=== PATIENT | female | born 1960 | race African-American/Black ===

== ENCOUNTER 2017-06-17 11:58 | Day surgery (SDC) | payer OTHER ==
[2017-06-17] MEDS ORDERED: NA CHLORIDE 0.9% 500 ML ONE (12:22)
[2017-06-17] MEDS ORDERED: BUPIVACAINE 0.25% PF 10 ML VIAL ONE (12:24)
[2017-06-17] MEDS ORDERED: TETRACAINE HCL 0.5% 2ML OPTH ONE (12:24)
[2017-06-17] MEDS ORDERED: CYCLOPENTOLATE 1% OPTH 2 ML ONE (12:24)
[2017-06-17] MEDS ORDERED: LIDOCAINE 2% MPF 5 ML VIAL ONE ×2 (12:24→13:34)
[2017-06-17] MEDS ORDERED: PHENYLEPHRINE 10% OPTH 5ML ONE (12:25)
[2017-06-17] MEDS ORDERED: BALANCED SALT IRRIG PLAIN 500 ML BTL IRR ONE (12:26)
[2017-06-17] MEDS ORDERED: NS 0.9% VIAL 10 ML ONE (12:26)
[2017-06-17] MEDS ORDERED: EPINEPHRINE/PF 1 MG/ML AMP ONE ×2 (12:26→14:29)
[2017-06-17] MEDS ORDERED: DUOVISC 1 KIT OPTH ONE (12:27)
[2017-06-17] MEDS ORDERED: MOXIFLOXACIN HCL 10 DROPS/ML **OR USE OPTH ONE (12:28)
[2017-06-17] MEDS ORDERED: TRYPAN BLUE 0.5 ML SYR OPTH ONE (12:28)
[2017-06-17] MEDS ORDERED: CYCLOPENTOLATE 1% OPTH 2 ML OPTH ONE ×2 (12:37→12:42)
[2017-06-17] MEDS ORDERED: PHENYLEPHRINE 10% OPTH 5ML OPTH ONE ×2 (12:37→12:42)
[2017-06-17] MEDS ORDERED: PROPOFOL 200 MG/20 ML VIAL IV ONE (13:34)
--- NOTE | 2017-06-17 14:53 | P.BOP ---
Preoperative diagnosis: Mature cataract OD Postoperative diagnosis: Same Primary procedure: Phacoemulsification with IOL OD, complex with the use of trypan blue Estimated blood loss: None Anesthesia: Local (Subtenon's infusion with anesthesia for cataract surgery) Complications: None Implants: ZCB00 +13.0 Transferred to: Other (Day surgery) Condition: Good
[2017-06-17 15:08] VITALS: BP 140/73; TEMP 97.4; O2SAT 99
--- NOTE | 2017-06-18 02:11 | OP ---
Surgeon: Kate Hendrickson MD Anesthesiologist: 1. Michael Joy C.R.N.A. 2. Ric Russell M.D. Preoperative Diagnosis: Mature cataract, right eye. Operation Performed: Phacoemulsification with intraocular lens implant, right eye, complex with use of trypan blue. Anesthesia: Per cataract surgery. Complications: None. Description Of The Procedure: The patient was prepped with Betadine in day surgery. A drape was placed over the right eye. A lid speculum was placed in the right eye. A conjunctival incision was made in the inferior nasal quadrant with Kailash scissors. A 1:1 mixture of 2% Xylocaine and 0.25% bupivacaine was placed around the globe. Approximately 5 mL were used. A Honan balloon was placed on the eye for approximately 5 minutes. The patient was then transferred to the operative room where they were prepped and draped in the usual sterile fashion for ophthalmic surgery. A lid speculum was placed in the right eye. There was poor red reflex and a decision was made to use trypan blue. Paracentesis sites were made superiorly and inferiorly in the limbal cornea. Trypan blue was placed in the anterior chamber for 30 seconds and then balanced salt solution was used to rinse out the trypan blue from the eye. Viscoat was placed in the eye. The temporal conjunctiva was cut at the limbus with Kailash scissors. A crescent blade was used to create a tunnel incision in the temporal cornea. A keratome was used to enter the anterior chamber. Provisc was placed in the eye. A 360 degree capsulotomy was performed with a cystitome. The lens was hydrated with balanced salt solution and moved freely. The lens was removed in a stop and chop fashion. A 6.10 CDE was required. Irrigation and aspiration were used to remove residual cortex. Provisc was placed in the eye and a ZCB00 +13.0 Diopter lens was placed in the capsular bag without complications. Irrigation and aspiration were used to remove residual Viscoat. The paracentesis sites were hydrated with balanced salt solution. The wound and paracentesis sites were inspected and found to be watertight. Intracameral Vigamox 0.07 cc was injected at the end of the procedure. The eye was irrigated with balanced salt solution. The eye was patched with a soft cotton patch and Marti metal shield and the patient was returned to day surgery in good condition. Comments: During phacoemulsification, the iris became floppy and 1:5000 epinephrine was used in the anterior chamber. Prior to the capsulotomy, a 27- gauge needle was placed into the lens and some of the excess cortex was aspirated. Discharge Instructions: Ms. Tavera is discharged to home in good condition and is to follow up with Dr. Hendrickson in the morning. MARY GRACE/TERELL Voice ID: [id number] Report ID: [id number]
== END 2017-06-17 15:17 | disposition home or self-care (01) ==
LOC: OR 11:58
PROVIDERS: ATTEND Ophthalmology Retina Specialist
PROC: 08RJ3JZ Replacement of Right Lens with Synthetic Substitute, Percutaneous Approach (ICD-10-PCS; principal; 2017-06-17 12:00)
DX: H25.89 Other age-related cataract (principal); H43.811 Vitreous degeneration, right eye; H20.9 Unspecified iridocyclitis; I10 Essential (primary) hypertension; K50.90 Crohn's disease, unspecified, without complications; Z88.3 Allergy status to other anti-infective agents; Z83.3 Family history of diabetes mellitus
CPT/HCPCS: J0171

== ENCOUNTER 2017-08-29 06:23 | Day surgery (SDC) | payer OTHER ==
[2017-08-29 06:40] LABS: Specific Gravity >= 1.030 (1.005-1.030)
[2017-08-29] MEDS ORDERED: SCOPOLAMINE HYDROBROMIDE PATCH TD ONE (06:44)
[2017-08-29] MEDS ORDERED: CEFAZOLIN/SWI 1gm 1 GM/10 ML SYR ONE (06:45)
[2017-08-29] MEDS ORDERED: Ringers Lactate 1,000 ML IV ONE (06:45)
[2017-08-29] MEDS ORDERED: DEXAMETHASONE 10 MG/ML VIAL ONE (06:59)
[2017-08-29] MEDS ORDERED: ROCURONIUM 50 MG/5 ML VIAL IV ONE (06:59)
[2017-08-29] MEDS ORDERED: PROPOFOL 200 MG/20 ML VIAL IV ONE (06:59)
[2017-08-29] MEDS ORDERED: FENTANYL CITR 250 MCG/5 ML ONE (07:00)
[2017-08-29] MEDS ORDERED: ONDANSETRON HCL 40 MG/20 ML VIAL ONE (07:00)
[2017-08-29] MEDS ORDERED: LIDOCAINE 2% MPF 5 ML VIAL ONE (07:00)
[2017-08-29] MEDS ORDERED: MIDAZOLAM HCL 2 MG/2 ML INJ ONE (07:00)
[2017-08-29] MEDS: NA CHLORIDE 0.9% 1,000 ML ONE ×4 (07:45→15:53)
[2017-08-29] MEDS ORDERED: KETOROLAC 30 MG/ML INJ ONE (09:27)
[2017-08-29] MEDS: MEPERIDINE HCL 25 MG/0.5 ML ONE ×2 (10:06→10:11)
[2017-08-29 10:07] VITALS: TEMP 97
[2017-08-29] MEDS ORDERED: HYDROCODONE/APAP 5/325 MG TAB ONE (11:36)
[2017-08-29 14:31] VITALS: O2SAT 100
[2017-08-29 15:42] VITALS: BP 124/70
--- NOTE | 2017-08-29 20:25 | OP ---
Date of Procedure: 08/29/2017 Surgeon: Sarina Ariza MD Bowling Ball Weigher And Packer: Cipriano Bender. Preoperative Diagnoses: Postmenopausal bleeding and pelvic pain. Postoperative Diagnoses: Postmenopausal bleeding and pelvic pain. Procedures Performed: Total laparoscopic hysterectomy, bilateral salpingo-oophorectomy, pelvic washi ngs. Anesthesia: General endotracheal. Ebl: Minimal. Complications: None. Drains: None. Specimens: Uterus, bilateral tubes, ovaries, and pelvic washings. Indications: The patient is a 56-year-old with postmenopausal bleeding. She had undergone an endome trial ablation for heavy bleeding in the past. The endometrial sampling was attempted. There was no t adequate sampling to rule out hyperplasia, atypia, or malignancy. With recurrent postmenopausal bl eeding, she was advised to consider hysterectomy. Description Of Procedure: Consented her. Brought her to the OR. A gram of Ancef was given. The pa tient was taken back to the OR, placed in a supine fashion on the operating table. After general ane sthesia was given, she was placed in a dorsal lithotomy position using Liang stirrups. Pelvic exam p erformed uterus small cervix, small. No adnexal masses were palpable. Abdomen, vulva, vagina, and perineum were prepped and draped in sterile fashion. Alcazar was placed to drain the bladder and attached to cysto tubing for retrograde filling. A medium VCare was attempted to be introduced. There was a small perforation in the anterior wall of the uterus, but this did no t interfere with any of the procedure. This was fixed in place and the area was draped. A 1 cm infraumbilical incision was made with a scalpel using the open laparoscopy technique. Fascia was incised, tagged. Peritoneum was entered bluntly and S retractors placed to introduce the Yoel trocar. Site of entry was checked and was unremarkable. Upper abdominal surfaces including the live r, peritoneal surfaces, omentum were all inspected and unremarkable. Her gallbladder is unremarkable as well. The patient was placed in steep Trendelenburg position. A pelvic survey was performed, an d there was a small fibroid at the fundus, subserosal, but no other abnormalities noted on the pelvic peritoneum or the organs. Both ovaries and tubes were atrophic. The 10 mm suprapubic and 5 mm left lower quadrant ports were placed under direct vision. Looking at the uterine perforation, it was no t bleeding, however, pelvic washings were done to make sure that there was no evidence of any abnorma l cytology. After pelvic survey was completed, both ureters were located and traced from the pelvic brim to the u reteric tunnel. There was no anatomical distortion of these. There was small peritoneal adhesion, l ateral to the uterosacral ligament that pulled up, but this was also taken down with the help of plai n scissors to normalize the anatomy. Then, a hysterectomy was started. A 5 mm LigaSure was taken to take down the tube, utero-ovarian ligament, round ligament. Then, the b road ligament was opened up anteriorly and posteriorly. An anterior flap was raised all the way to t he right to create a bladder flap. Posteriorly it was taken down to the level of the left uterosacra l ligament. The uterosacrals were left intact, attached to the vaginal apex. Then, broad ligament w as taken down to skeletonize the vessels on the left side. Then, the same dissection was performed o n the opposite side as well. The tube was removed utero-ovarian round ligament taken down broad liga ment opened up. However, it was difficult to take down the posterior peritoneum on the right side. This was left intact. Then, went onto the anterior wall to clear the bladder. The anterior vaginal wall was dissected to enter the vesicovaginal space. Once I was in there, the bladder was pushed abe n at least 2 cm inferiorly for cuff opening and closure. Vessels were taken down on the right side and on the left side with the help of the bipolar basket ti p followed by the LigaSure, and the cardinal ligaments were also taken down with the help of the Liga Sure. Circumferential colpotomy was performed on both sides. The circumferential colpotomy was perf ormed with a monopolar hook blade and the specimen was detached and pulled out through the vagina. The vaginal occluder bulb was placed for securing the pneumoperitoneum and the ovaries on both sides were taken down with the help of the LigaSure and retrieved through the suprapubic port. There was b leeding from the right corner of the vaginal cuff and this was picked up with [place] and cauterized with the bipolar LigaSure. There was good hemostasis. Then, the vaginal cuff closure was started. A simple 0 Vicryl suture was placed at the left angle including the uterosacral and tied down. A V- Loc suture was taken and starting at the right angle, the suture was taken down in 5 bites to come ac ross all the way including the posterior rectovaginal, fascia anterior precervical fascia, and the va ginal epithelial edges on both anterior and posterior cuff. After the entire closure was done, there was excellent support, good closure, and hemostasis. Both ureters were checked on both sides. No e vidence of any electrical, mechanical, or thermal injury to them. Thorough irrigation and suction we re performed. Pictures were taken. Trocars were removed under direct vision. No evidence of any bl eeding at any of these sides. Gas was desufflated after the Yoel was pulled out. Fascia was close d with the help of 0 Vicryl in a fiemud-qa-lhmpp fashion and simple 0 Vicryl to bring the subcutaneou s tissues together. Simple 0 Vicryl stitch was placed at the fascia in the suprapubic site. Then, a ll skin incisions closed with the help of interrupted 4-0 Monocryl. Instrument, needle, and sponge c ounts were correct at the end of the case. The patient tolerated the procedure well. She was recove red from anesthesia in the OR and taken to PACU in stable condition. KELLEY/TERELL Voice ID: [id number] Report ID: [id number]
== END 2017-08-29 15:53 | disposition home or self-care (01) ==
LOC: OR 06:23
PROVIDERS: ATTEND Obstetrics & Gynecology
PROC: 0UT24ZZ Resection of Bilateral Ovaries, Percutaneous Endoscopic Approach (ICD-10-PCS; 2017-08-29)
PROC: 0UT74ZZ Resection of Bilateral Fallopian Tubes, Percutaneous Endoscopic Approach (ICD-10-PCS; 2017-08-29)
PROC: 3E1M38X Irrigation of Peritoneal Cavity using Irrigating Substance, Percutaneous Approach, Diagnostic (ICD-10-PCS; 2017-08-29)
PROC: 0UT94ZZ Resection of Uterus, Percutaneous Endoscopic Approach (ICD-10-PCS; principal; 2017-08-29 07:30)
DX: N95.0 Postmenopausal bleeding (principal); I10 Essential (primary) hypertension; K50.90 Crohn's disease, unspecified, without complications; R31.21 Asymptomatic microscopic hematuria; K52.9 Noninfective gastroenteritis and colitis, unspecified; D25.2 Subserosal leiomyoma of uterus
CPT/HCPCS: 81025; 86850; 86900; 86901; 88108; 88305; 88307; J0690; J1100; J2175; J2250; J2405; J7030

== ENCOUNTER 2022-07-30 08:04 | Observation (INO) | payer BC ==
--- OUTSIDE RECORDS SUMMARY | 2022-07-30 08:08 | XMS REPORT | Clinical Summary ---
:1960 Author Organization [facility] MD [facility] Address [address] [place] [address] Care Team Providers Name Role Phone Sarina Ariza MD Unavailable Physician, Outside Primary Care Provider Unavailable Allergies Not on File Medications Not on file Active Problems Not on file Social History Tobacco Use Types Packs/Day Years Used Date Smoking Tobacco: Never Assessed Sex Assigned at Date Recorded Not on file Last Filed Vital Signs Not on file Plan of Treatment Health Maintenance Due Date Last Done Comments COVID-19 Vaccination (#1) 05/29/1959 Results Not on fileafter 07/30/2021 Insurance Payer Benefit Plan / Subscriber ID Effective Dates Phone Addre ss Type Group [facility] [id number] 2018-Presen [address] [facility] [place] [address] [address] (Home) [facility] [phone] [place] [id number] (Work) Darlene Tavera Personal/Family Self 1960 [phone] (Home) [facility] [phone] [id number] (Work) Darlene Tavera Personal/Family Self 1960 [phone] (Home) [facility] [phone] [id number] (Work) Care Teams Account Executive Healthcare Relationship Specialty Start Date End Date Sarina Ariza, PCP - External Referring Obstetrics/Gynecology 09/22/[address] [place] [id number] Physician, Outside PCP - General Oncology 01/08/19 [place] [address]
--- OUTSIDE RECORDS SUMMARY | 2022-07-30 08:08 | XMS REPORT | Continuity of Care Document ---
:1960 Author Organization [facility] t Address [address] [facility] [address] [place] [id number] Care Team Providers Name Role Phone PCP, PATIENT DOES NOT HAVE A Primary Care Physician Unavaila AUTUMN Urias Attending Clinician Unavailable DEVONTE MICHELLE I Attending Clinician Unavailable Yolanda Hyman RN Attending Clinician Unavailable Only, Charly Db Test Attending Clinician Unavailable Unknown, Attending Attending Clinician Unavailable HANK GARZA Attending Clinician Unavailable Payers Payer Name Policy Type Policy Number Effective Date Expiration Date S leena BCBS 2 [id number] 2022 00:00:00 Problems This patient has no known problems. Allergies, Adverse Reactions, Alerts Allergy Allergy Status Severity Reaction(s) Onset Inactive Treating Comm ents Source Name Type Date Date Clinician NO KNOWN Drug Active [facility] ALLERGIE Class [facility] Social History Social Habit Start Date Stop Date Quantity Comments Source Exposure to Not sure [facility] SARS-CoV-2 (event) Medica l Branch Sex Assigned At [birth year] [facility] 00:00:00 00:00:00 MD [facility] Smoking Status Start Date Stop Date Source Unknown if ever smoked [facility] Medications Ordered Filled Start Stop Current Ordering Indication Dosage Frequency Signature Comments Components Source Medication Medication Date Date Medication? Clinician (SIG) Name Name No known 2020-02 No Univers medications 2-19 ity of 09:07: [address] No known 2020-02 No [facility] medications 2-19 ity of 09:07: [address] Procedures This patient has no known procedures. Plan of Care Planned Activity Planned Date Details Comments Source Future Scheduled 2021-08-23 COVID-19 Vaccination [facility] [place] Test 06:25:57 (#1) [code = COVID-19 [facility] Vaccination (#1)] Center Encounters Start End Encounter Admission Attending Care Care Encounter Source Date/Time Date/Time Type Type Clinicians Facility Department ID 2022-07-12 2022-07-[address] [facility] [id number] [place] 00:00:00 00:00:[address] [facility] [address] 2022-04-12 2022-04-12 Outpatient ALICIA MICHELLE [id number] 11:15:00 11:15:00 DEVONTE francois 2021-02-23 2021-02-23 Letter DEVONTE Hyman [id number] Univers 00:00:00 00:00:00 (Out) Yolanda [facility] [id number] it y of [facility] [id number] Roc as [id number] [address] 2021-02-21 2021-02-21 Laboratory Only, Ang Db Test [facility] [id number] Univers 13:00:00 13:15:00 Only Unknown, Attending HEALTH [id number] ity [facility] [id number] Roc as BERTRAM?BLEA [id number] [address] MED[facility] OFF[facility] 2021-02-21 2021-02-21 Outpatient Pattie GARZA [facility] [id number] Univers 13:00:00 13:01:05 HANK peralta [facility] Results This patient has no known results.
[2022-07-30] MEDS ORDERED: ASPIRIN 81 MG CHEWABLE TABLET ONE (08:57)
--- NOTE | 2022-07-30 08:57 | RAD REPORT ---
EXAM DESCRIPTION: RAD - Chest Single View - 07/30/2022 8:46 am CLINICAL HISTORY: CHEST PAIN Chest pain. COMPARISON: Chest Pa And Lat (2 Views) dated 01/24/2022; Chest Pa And Lat (2 Views) dated 07/29/2017; Chest Single View dated 10/13/2015; CHEST PA AND LAT 2 VIEW dated 06/29/2011 FINDINGS: Portable technique limits examination quality. The lungs are grossly clear. The heart is normal in size. No displaced fractures. IMPRESSION: No acute intrathoracic process suspected.
[2022-07-30 09:10] LABS: Absolute Lymphocytes (CBC) 1.2 K/uL (0.7-4.9); Hematocrit 41.4 % (36.0-45.0); Lymphocytes % 17.2 % (15.3-44.8); MCV 90.4 fL (80-100); MPV 7.2 fL (7.6-11.3); RBC Red Blood Cell Count 4.57 M/uL (3.86-4.86)
[2022-07-30 09:32] LABS: ALT/SGPT 38 U/L (13-56); AST/SGOT 22 U/L (15-37); Albumin 3.9 g/dL (3.4-5.0); Alkaline Phosphatase 81 U/L (45-117); BUN Blood Urea Nitrogen 13 mg/dL (7-18); Bicarbonate 27 mEq/L (21-32); Bilirubin Total 0.2 mg/dL (0.2-1.0); Glomerular Filtration Rate 74 ml/min (=/>90); Glucose Level 115 mg/dL (74-106); Magnesium 2.1 mg/dL (1.6-2.4); Potassium 3.7 mEq/L (3.5-5.1); Protein, Total 8.5 g/dL (6.4-8.2); Sodium Level 137 mEq/L (136-145)
[2022-07-30 09:33] LABS: Bilirubin Direct < 0.1 mg/dL (0-0.2); Bilirubin Indirect, Calculated ND mg/dL (0.2-0.8)
[2022-07-30 09:34] LABS: Troponin High Sensitivity 82.1 pg/mL (<58.9)
--- NOTE | 2022-07-30 09:52 | ER ---
Nurse's Notes [facility] Name: Darlene Tavera Age: 61 yrs Sex: Female : 1960 Arrival Date: 07/30/2022 Time: 08:04 Bed 20 Private MD: Nathanael Juares Diagnosis: Chest pain, unspecified;Elevated Troponin Presentation: 07/30 08:12 Chief complaint: Patient states: Substernal chest pressure, radiates to right neck and jl7 arm since 0645. 08:12 Coronavirus screen: At this time, the client does not indicate any symptoms associated jl7 with coronavirus-19. Ebola Screen: No symptoms or risks identified at this time. Initial Sepsis Screen: Does the patient meet any 2 criteria? No. Patient's initial sepsis screen is negative. Does the patient have a suspected source of infection? No. Patient's initial sepsis screen is negative. Risk Assessment: Do you want to hurt yourself or someone else? Patient reports no desire to harm self or others. Onset of symptoms was July 30, 2022 at 06:45. Care prior to arrival: None. 08:12 Method Of Arrival: Ambulatory jl7 08:12 Acuity: MIMI 2 jl7 Triage Assessment: 08:19 General: Appears in no apparent distress. uncomfortable, Behavior is calm, cooperative, jl7 appropriate for age. Pain: Complains of pain in chest Pain radiates to right arm and neck Pain currently is 8 out of 10 on a pain scale. Quality of pain is described as pressure. Neuro: Level of Consciousness is awake, alert, obeys commands, Oriented to person, place, time, situation. Cardiovascular: Patient's skin is warm and dry. Respiratory: Airway is patent Respiratory effort is even, unlabored, Respiratory pattern is regular, symmetrical. Derm: Skin is pink, warm \T\ dry. Historical: - Allergies: 08:19 metronidazole; jl7 - Home Meds: 08:19 lisinopril 40 mg Oral tab 1 tab once daily [Active]; spironolactone 25 mg Oral tab 1 jl7 tab once daily [Active]; - PMHx: 08:19 Colitis; Hypertension; jl7 - Immunization history:: Adult Immunizations unknown. - Social history:: Smoking status: Patient denies any tobacco usage or history of. Screenin:53 [facility] ED Fall Risk Assessment (Adult) History of falling in the last 3 months, ap3 including since admission No falls in past 3 months (0 pts). Abuse screen: Denies threats or abuse. Nutritional screening: No deficits noted. Tuberculosis screening: No symptoms or risk factors identified. Assessment: 08:52 General: Appears in no apparent distress. Behavior is calm, cooperative, appropriate ap3 for age. Pain: Complains of pain in neck and right arm and chest Pain began gradually, this morning. Neuro: Level of Consciousness is awake, alert, obeys commands, Oriented to person, place, time, situation. Cardiovascular: Reports chest pain, Patient's skin is warm and dry. Respiratory: Airway is patent Respiratory effort is even, unlabored, Respiratory pattern is regular, symmetrical. 11:35 General: attempted to call report. was informed the receiving nurse would return my ap3 call. 12:55 General: report given to JF Hdez. ap3 Vital Signs: 08:12 BP 141 / 82; Pulse 83; Resp 17; Temp 97.9; Pulse Ox 100% ; Weight 72.57 kg; Height 5 ss ft. 1 in. ; Pain 8/10; 09:22 Pulse 64; Pulse Ox 100% ; ap3 09:37 BP 123 / 75; ap3 11:14 BP 117 / 72; Pulse 86; Resp 16; Pulse Ox 100% ; ap3 08:12 Body Mass Index 30.23 (72.57 kg, 154.94 cm) ss 08:12 Pain Scale: Adult ss ED Course: 08:08 Patient arrived in ED. mr 08:08 Nathanael Juares MD is Private Physician. mr 08:10 Ron Peng DO is Attending Physician. ms3 08:19 Triage completed. jl7 08:19 Arm band placed on right wrist. jl7 08:26 Shana Henriquez, JF is Primary Nurse. ap3 08:48 XRAY Chest (1 view) In Process Unspecified. EDMS 08:53 Patient has correct armband on for positive identification. Placed in gown. Bed in low ap3 position. Call light in reach. Side rails up X 1. water service supervisor on. Pulse ox on. NIBP on. Door closed. Noise minimized. 09:08 Inserted saline lock: 22 gauge in right antecubital area, using aseptic technique. ss ,using aseptic technique. US guided. Pt tolerated well. Blood collected. 09:51 Dieter Ellis MD is Hospitalizing Provider. ms3 13:11 No provider procedures requiring assistance completed. Patient admitted, IV remains in ap3 place. Administered Medications: 08:51 Drug: Aspirin PO Chewable Tablet 324 mg Route: PO; jl7 11:14 Follow up: Response: No adverse reaction ap3 Medication: 13:11 VIS not applicable for this client. ap3 Outcome: 09:52 Decision to Hospitalize by Provider. ms3 13:11 Admitted to Med/surg ap3 13:11 Condition: good 13:11 Instructed on the need for admit. 13:11 Patient left the ED. ap3 Signatures: Dispatcher [employer] EDMS HessMinerva goncalves Shelby, RN RN Taylor Black RN RN jl7 Shana Henriquez RN RN ap3 Ron Peng DO DO ms3 Corrections: (The following items were deleted from the chart) 09:08 08:12 BP 141 / 82; Pulse 83bpm; Resp 79bpm; Pulse Ox 100%; Temp 97.9F; 72.57 kg; Height ss 5 ft. 1 in.; BMI: 30.2; Pain 8/10, Adult; jl7
--- NOTE | 2022-07-30 09:53 | EDPHYS ---
Physician Documentation [facility] Name: Darlene Tavera Age: 61 yrs Sex: Female : 1960 Arrival Date: 07/30/2022 Time: 08:04 Bed 20 Private MD: Nathanael Juares ED Physician Ron Peng HPI: 07/30 08:19 This 61 yrs old Black Female presents to ER via Unassigned with complaints of Chest ms3 discomfort, Arm Pain. 08:19 61-year-old female with past medical history of hypertension presents for not feeling ms3 well. Patient states her symptoms began at 6:45 AM while at a strength and conditioning class she developed a headache and began feeling sick. Patient states she developed substernal chest pain that radiated to her right neck and right arm. Patient endorses nausea. Patient denies vomiting, fevers, chills. Patient denies alleviating or inciting factors. Patient states she had the symptoms 1 month ago and they self resolved.. Historical: - Allergies: 08:19 metronidazole; jl7 - Home Meds: 08:19 lisinopril 40 mg Oral tab 1 tab once daily [Active]; spironolactone 25 mg Oral tab 1 jl7 tab once daily [Active]; - PMHx: 08:19 Colitis; Hypertension; jl7 - Immunization history:: Adult Immunizations unknown. - Social history:: Smoking status: Patient denies any tobacco usage or history of. ROS: 08:19 Constitutional: Negative for fever, and chills. Respiratory: Negative for shortness of ms3 breath, cough, wheezing, and pleuritic chest pain. 08:19 MS/Extremity: Negative for injury and deformity, Skin: Negative for injury, rash, and discoloration, Neuro: Negative for headache, weakness, numbness, tingling. 08:19 Cardiovascular: Positive for chest pain. 08:19 Abdomen/GI: Positive for nausea, Negative for abdominal pain, vomiting, diarrhea. 08:19 All other systems are negative. Exam: 08:19 Constitutional: This is a well developed, well nourished patient who is awake, alert, ms3 and in no acute distress. Head/Face: Normocephalic, atraumatic. Chest/axilla: Normal chest wall appearance and motion. Nontender with no deformity. Cardiovascular: Regular rate and rhythm with a normal S1 and S2. No gallops, murmurs, or rubs. Normal PMI, no JVD. No pulse deficits. Respiratory: Lungs have equal breath sounds bilaterally, clear to auscultation and percussion. No rales, rhonchi or wheezes noted. No increased work of breathing, no retractions or nasal flaring. Abdomen/GI: Soft, non-tender, with normal bowel sounds. No distension or tympany. No guarding or rebound. No evidence of tenderness throughout. Skin: Warm, dry with normal turgor. Normal color with no rashes, no lesions, and no evidence of cellulitis. MS/ Extremity: Pulses equal, no cyanosis. Neurovascular intact. Full, normal range of motion. 08:26 ECG was reviewed by the Attending Physician. ms3 Vital Signs: 08:12 BP 141 / 82; Pulse 83; Resp 17; Temp 97.9; Pulse Ox 100% ; Weight 72.57 kg; Height 5 ss ft. 1 in. ; Pain 8/10; 09:22 Pulse 64; Pulse Ox 100% ; ap3 09:37 BP 123 / 75; ap3 11:14 BP 117 / 72; Pulse 86; Resp 16; Pulse Ox 100% ; ap3 08:12 Body Mass Index 30.23 (72.57 kg, 154.94 cm) ss 08:12 Pain Scale: Adult ss MDM: 08:19 Patient medically screened. ms3 08:19 Differential diagnosis: ACS vs MSK pain vs Dehydration. ms3 09:52 Data reviewed: vital signs, nurses notes, lab test result(s), EKG, radiologic studies, ms3 and as a result, I will admit patient. Consideration of Admission/Observation Patient was admitted/placed on observation. Management of patient was discussed with the following: Hospitalist: . I considered the following discharge prescriptions or medication management in the emergency department Medications were administered in the Emergency Department. See MAR. Independent interpretation of the following test(s) in the Emergency Department EKG: See my EKG interpretation above quality assurance monitor chassis: rate is 71 beats/min, Rhythm is normal sinus rhythm, regular, with no ectopy, Interpretation: normal rate, normal rhythm. Counseling: I had a detailed discussion with the patient and/or guardian regarding: the historical points, exam findings, and any diagnostic results supporting the discharge/admit diagnosis, lab results, radiology results, the need for further work-up and treatment in the hospital. ED course: Discussed mildly elevated troponin with patient. Patient agrees to stay in observation. Patient's primary care physician Dr. Juares is currently out of the country and admitting to the [facility] hospitalist group. Case discussed with hospitalist group and they accept patient.. 07/30 08:15 Order name: Basic Metabolic Panel; Complete Time: 09:42 ms3 07/30 08:15 Order name: CBC with Diff; Complete Time: 09:42 ms3 07/30 08:15 Order name: LFT's; Complete Time: 09:42 ms3 07/30 08:15 Order name: Magnesium; Complete Time: 09:42 ms3 07/30 08:15 Order name: Troponin HS; Complete Time: 09:42 ms3 07/30 08:15 Order name: XRAY Chest (1 view); Complete Time: 09:00 ms3 07/30 08:15 Order name: EKG; Complete Time: 08:15 ms3 07/30 08:15 Order name: Cardiac monitoring; Complete Time: 08:26 ms3 07/30 08:15 Order name: EKG - Nurse/Tech; Complete Time: 08:26 ms3 07/30 08:15 Order name: IV Saline Lock; Complete Time: 09:07 ms3 07/30 08:15 Order name: Labs collected and sent; Complete Time: 09:07 ms3 07/30 08:15 Order name: O2 Per Protocol; Complete Time: 08:26 ms3 07/30 08:15 Order name: O2 Sat Monitoring; Complete Time: 08:26 ms3 EC:26 Rate is 86 beats/min. Rhythm is regular. QRS [place] is Normal. MT interval is normal. QRS ms3 interval is normal. Clinical impression: Normal ECG. Interpreted by me. Reviewed by me. Administered Medications: 08:51 Drug: Aspirin PO Chewable Tablet 324 mg Route: PO; jl7 11:14 Follow up: Response: No adverse reaction ap3 Disposition Summary: 07/30/22 09:52 Hospitalization Ordered Hospitalization Status: Observation ms3 Provider: Dieter Ellis ms3 Location: Telemetry/MedSurg (observation) ms3 Condition: Stable ms3 Problem: new ms3 Symptoms: are unchanged ms3 Bed/Room Type: Standard ms3 Room Assignment: 229(07/30/22 11:28) bd Diagnosis - Chest pain, unspecified ms3 - Elevated Troponin ms3 Forms: - Medication Reconciliation Form ms3 - SBAR form ms3 Signatures: Dispatcher [employer] Elisa Monroy Jahala, RN RN jl7 Ron Peng DO DO ms3 Shana Henriquez RN ap3 Corrections: (The following items were deleted from the chart) : 09:52 ms3 bd
[2022-07-30] MEDS ORDERED: ACETAMINOPHEN 325 MG TABLET PO PRN (10:35)
[2022-07-30] MEDS ORDERED: HYDROCODONE/APAP 5/325 MG TAB PO PRN (10:35)
--- NOTE | 2022-07-30 10:41 | P.HP ---
Certification for Inpatient Patient admitted to: Observation With expected LOS: <2 Midnights Patient will require the following post-hospital care: None Practitioner: I am a practitioner with admitting privileges, knowledge of patient current condition, hospital course, and medical plan of care. Services: Services provided to patient in accordance with Admission requirements found in Title 42 Section 412.3 of the Code of Federal Regulations Patient History Date of Service: 07/30/22 Reason for admission: Chest pain History of Present Illness: Patient is a 61-year-old male with a past medical history significant for Hypertension, Ulcerative Colitis who presents with complaint of chest pain onset today while she was having her strengthening exercise sessions. She reported that she does the exercises twice a week and has been doing the exercises for the past 6 months without any issues. Patient reported that chest pain is located in the substernal chest area with radiation to the right chest wall, right jaw, right shoulder and right arm. Patient reported associated signs and symptoms of headache, nausea, diaphoresis, shortness of breath, fatigue and generalized weakness. Patient denies any other signs and symptoms. Symptoms are aggravated or relieved by nothing. Patient decided to present to the hospital for medical evaluation. Allergies metronidazole [From Flagyl] Adverse Reaction (Mild, Verified 08/26/17 13:19) Nausea/Vomiting Home Medications: Mesalamine [Lialda] 1.2 gm PO BID 06/29/11 Mercaptopurine 50 mg PO DAILY 03/01/15 Lisinopril [Zestril] 40 mg PO DAILY WITH BREAKFAST 12/12/15 Spironolactone [Aldactone*] 25 mg PO DAILY 12/12/15 - Past Medical/Surgical History Diabetic: No -: HTN -: Ulcerative Colitis Past Surgical History: Reviewed- Non-Contributory - Family History Family History: Reviewed- Non-Contributory - Social History Smoking Status: Never smoker Alcohol use: Yes CD- Drugs: No Caffeine use: Yes Place of Residence: Home Review of Systems General: Sweats, Weakness, Other (Fatigue) Eyes: Unremarkable ENT: Unremarkable Respiratory: Shortness of Breath Cardiovascular: Chest Pain Gastrointestinal: Nausea Genitourinary: Unremarkable Musculoskeletal: Shoulder Pain, Arm Pain, Other (Jaw pain ) Integumentary: Unremarkable Neurological: Weakness Lymphatics: Unremarkable Physical Examination - Physical Exam General: Alert, In no apparent distress, Oriented x3, Cooperative HEENT: Atraumatic, PERRLA, Mucous membr. moist/pink, EOMI, Sclerae nonicteric Neck: Supple, 2+ carotid pulse no bruit, No LAD, Without JVD or thyroid abnormality Respiratory: Clear to auscultation bilaterally, Normal air movement Cardiovascular: Regular rate/rhythm, Normal S1 S2 Capillary refill: <2 Seconds Gastrointestinal: Normal bowel sounds, Soft and benign, Non-distended, No tenderness Musculoskeletal: No clubbing, No swelling, No contractures, No tenderness Integumentary: No rashes, No breakdown, No significant lesion, No tenderness/swelling Neurological: Normal speech, Normal strength at 5/5 x4 extr, Normal tone, Normal affect Lymphatics: No axilla or inguinal lymphadenopathy - Studies Laboratory Data (last 24 hrs) 07/30/22 08:58: WBC 7.10, Hgb 13.4, Hct 41.4, Plt Count 287 07/30/22 08:58: Sodium 137, Potassium 3.7, BUN 13, Creatinine 0.88, Glucose 115 H, Magnesium 2.1, Total Bilirubin 0.2, AST 22, ALT 38, Alkaline Phosphatase 81 Assessment and Plan - Plan -- Chest pain. To rule out ACS. Initial troponin level at 82.1. Will trend serial troponin levels. Cardiology consulted. Echocardiogram pending to assess cardiac structures and functions. Telemetry to monitor for any significant arrhythmia. We await further recommendation from certified dental assistant. --History of ulcerative colitis. Stable. Continue home medication and supportive care. -- Hypertension. Poorly controlled. Continue home medications and hydralazine as needed. --Headache. Tylenol as needed. --Acute pain. We will manage pain with current pain medication regimen. --Class I obesity. Likely secondary to excess calories intake. Patient counseled on weight reduction, diet and excise therapy. --CKD 2. Stable. We will continue to monitor renal functions. --DVT prophylaxis with Lovenox subQ. Discharge Plan: Home Plan to discharge in: 48 Hours - Advance Directives Does patient have a Living Will: No Does patient have a Durable POA for Healthcare: No - Code Status/Comfort Care Code Status Assessed: Yes Physician Review: Patient Assessed, Agree with Above Assessment and Plan Critical Care: No
[2022-07-30] MEDS ORDERED: ONDANSETRON 4 MG/2 ML VIAL IV PRN (11:03)
--- NOTE | 2022-07-30 12:00 | EKG ---
Test Date: 2022-07-30 Test Time: 08:21:57 Apparel Designer: HALI MEASUREMENT RESULTS: Intervals: Rate: 86 NE: 128 QRSD: 78 QT: 368 QTc: 440 [place]: P: 61 NE: 128 QRS: 61 T: 49 INTERPRETIVE STATEMENTS: Normal sinus rhythm Possible Left atrial enlargement Borderline ECG Compared to ECG 12/12/2015 17:07:25 No significant changes Electronically Signed On 07-30-22 12:00:12 CDT by Mark Fernandez
[2022-07-30] MEDS ORDERED: HYDRALAZINE HCL 20 MG/ML VIAL IV PRN (12:31)
[2022-07-30 13:37] VITALS: BMI 30.2
[2022-07-30 14:44] LABS: Thyroid Stimulating Hormone 0.73 uIU/mL (0.358-3.740)
[2022-07-30] MEDS ORDERED: HEPA 1000U/500MLS 2,000 UNIT/1,000 ML BAG IV ONE (15:58)
[2022-07-30] MEDS ORDERED: LIDOCAINE 1% 20 ML MDV ONE (15:58)
[2022-07-30] MEDS ORDERED: NA CHLORIDE 0.9% 500 ML ONE (16:02)
[2022-07-30] MEDS ORDERED: MIDAZOLAM HCL 2 MG/2 ML INJ ONE (16:03)
[2022-07-30] MEDS ORDERED: FENTANYL CITR 100 MCG/2 ML ONE (16:03)
[2022-07-30] MEDS ORDERED: VERAPAMIL HCL 10 MG/4 ML VIAL IV ONE (16:04)
[2022-07-30] MEDS ORDERED: HEPARIN 5000 UNIT/ML 1 ML VIAL ONE (16:04)
[2022-07-30] MEDS ORDERED: TICAGRELOR 90 MG TABLET PO ONE (16:04)
[2022-07-30] MEDS ORDERED: HEPARIN 10,000 UNIT/10 ML VIAL IV ONE ×2 (16:04→17:16)
[2022-07-30] MEDS ORDERED: ATROPINE SULF 1 MG/10 ML SYR IV ONE (16:05)
[2022-07-30] MEDS ORDERED: CLOPIDOGREL 75 MG TABLET ONE (16:16)
[2022-07-30] MEDS ORDERED: ASPIRIN 325 MG TAB ONE (16:16)
[2022-07-30] MEDS ORDERED: NITROGLYCERIN/D5W 25 MG/250 ML BTL IV ONE (16:34)
[2022-07-30 18:03] VITALS: O2SAT 99
[2022-07-30] MEDS ORDERED: ATORVASTATIN 40 MG TAB PO SCH (21:00)
[2022-07-30] MEDS ORDERED: HEPARIN/D5W 25,000 UNIT/500 ML BAG IV SCH (21:16)
--- NOTE | 2022-07-30 21:17 | OP ---
Date of Procedure: 07/30/2022 Surgeon: CURT BETTS Procedures Performed: 1.Selective coronary angiogram. 2.Left heart catheterization. 3.PCI with mid severe large diagonal 1 branch, which is the culprit for the DC. I used 2.5 x 16 mm Synergy drug-eluting stent. Indication: Non-ST elevation myocardial infarction. Access: Right femoral artery 6-Mosotho closed with 6-Mosotho Angio-Seal. Complications: None. Bleeding: Less than 20 mL. Anesthesia: Total sedation time is none. Description Of Procedure: After risks, benefits, alternatives were explained, the patient agreed to procedure and signed informed consent. The patient was brought into the cardiac catheterization labo [facility], prepped and draped in the usual sterile fashion. Then, I accessed right femoral artery using ultrasound guidance, micropuncture kit and fluoroscopy. I placed a 6-Mosotho [place] sheath and too k 6-Mosotho JL4 catheter into the aortic root over a J-wire, engaged left main, took standard views an d exchanged for 6-Mosotho JR4 catheter, engaged the RCA, took standard views and the catheter was push ed over the wire into the LV and measured LVEDP, pullback did not record any gradient. Then gave sys temic heparin to assure ACT level above 250 throughout the procedure and I took a 6-Mosotho XB3.5 guid e into the aortic root over a J-wire, engaged left main, took a Run-Through wire into the LAD and the n through diagonal 1 branch passing the area of stenosis. The area was predilated using 2.5 balloon, expanded very well and then placed a 2.5 x 60 mm Synergy drug-eluting stent across the area of steno sis with excellent expansion. The patient did very well. I then removed the wire and the guide and sheath, placed 6--Mosotho Angio-Seal for closure with good hemostasis. Findings: 1.Left main; long and large with luminal irregularities. 2.LAD; proximal segment appears to be normal. Then, diagonal 1 branch comes off, it is very large v essel. It like an almost did well LAD system. In the mid segment, there was 99% stenosis, very long artery with GLORY 1-2 flows, status post successful PCI reducing the stenosis to 0% and resultant CRISTAL I-3 flow. Then in the mid LAD, there was an 80% stenosis, short segment and then the LAD becomes nor mal. 3.Left circumflex; very small and nondominant, extremely small vessel. 4.RCA; large and dominant with luminal irregularities. 5.LVEDP elevated at 70 mmHg. Conclusion: 1.Critical mid diagonal 1 branch stenosis, which is a culprit for DC, status post successful PCI as above. 2.Severe mid LAD stenosis about 80%. Needs staged PCI, which will be done in about 4 weeks post dis charge. Plan: 1.Aspirin, Plavix, and statin. 2.Staged PCI of mid LAD as an outpatient in 4 weeks. SR/MODL Voice ID: [id number] Report ID: [id number]
[2022-07-31 06:48] LABS: Urine Bacteria None Seen /HPF (<20); Urine Bilirubin NEGATIVE (Negative); Urine Blood 1+ (Negative); Urine Clarity Clear (Clear); Urine Color Light-Yellow (Yellow); Urine Glucose NEGATIVE (Negative); Urine Mucus Slight /HPF (None Seen); Urine Protein NEGATIVE (Negative); Urine Urobilinogen Normal (Normal)
[2022-07-31 06:49] LABS: Potassium 3.7 mEq/L (3.5-5.1)
[2022-07-31 06:51] LABS: Absolute Lymphocytes (CBC) 2.7 K/uL (0.7-4.9); Hematocrit 36.2 % (36.0-45.0); MCV 90.2 fL (80-100); MPV 7.6 fL (7.6-11.3); RBC Red Blood Cell Count 4.02 M/uL (3.86-4.86)
--- NOTE | 2022-07-31 08:59 | P.DS ---
Admission Date: 07/30/22 Discharge Date: 07/31/22 Disposition: ROUTINE DISCHARGE Discharge Condition: FAIR Reason for Admission: Chest pain - Problems (1) Chest pain Current Visit: Yes Status: Acute (2) Coronary artery disease Current Visit: Yes Status: Acute (3) NSTEMI (non-ST elevated myocardial infarction) Current Visit: Yes Status: Acute (4) Essential hypertension Current Visit: Yes Status: Acute Brief History of Present Illness: Patient is a 61-year-old male with a past medical history significant for Hypertension, Ulcerative Colitis who presented with complaint of chest pain during her strengthening exercise sessions. She reported that she does the exercises twice a week and has been doing the exercises for the past 6 months without any issues. Patient reported that chest pain is located in the substernal chest area with radiation to the right chest wall, right jaw, right shoulder and right arm. Patient reported associated signs and symptoms of headache, nausea, diaphoresis, shortness of breath, fatigue and generalized weakness. Patient denies any other signs and symptoms. Symptoms are aggravated or relieved by nothing. Initial troponin elevated to 82. EKG did not meet STEMI criteria. Cardiology was informed and patient hospitalized for further management. Hospital Course: Patient troponin trended up to 8000. She was seen and evaluated by cardiology Dr. Paz who recommended cardiac catheterization. Cardiac catheterization revealed Critical mid diagonal 1 branch stenosis, which is a culprit for MT, status post successful PCI, severe mid LAD stenosis about 80% which needs staged PCI, which will be done in about 4 weeks after discharge. Patient was monitored as inpatient after cardiac catheterization and treated with heparin drip. She remained asymptomatic with stable vitals. She has been placed on aspirin, Brilinta and Lipitor. She is discharged to follow-up with Dr. Paz for arrangement for another cardiac cath within 4 weeks. Vital Signs/Physical Exam: Temp Pulse Resp BP Pulse Ox 97.3 F 72 17 140/71 99 07/31/22 04:00 07/31/22 04:00 07/31/22 04:00 07/31/22 04:00 07/31/22 04:00 General: Alert, In no apparent distress, Oriented x3 HEENT: Mucous membr. moist/pink Neck: JVD not distended Respiratory: Clear to auscultation bilaterally, Normal air movement Cardiovascular: No edema, Regular rate/rhythm, Normal S1 S2, No murmurs Gastrointestinal: Normal bowel sounds, Soft and benign, Non-distended, No tenderness Musculoskeletal: No swelling Integumentary: No rashes, No cyanosis Neurological: Normal strength at 5/5 x4 extr Laboratory Data at Discharge: WBC 7.60 thou/uL (4.3-10.9) 07/31/22 06:01 Hgb 11.8 g/dL (12.0-15.0) L D 07/31/22 06:01 Hct 36.2 % (36.0-45.0) 07/31/22 06:01 Plt Count 232 thou/uL (152-406) 07/31/22 06:01 APTT 93.5 SECONDS (24.3-36.9) H 07/31/22 06:15 Sodium 139 mEq/L (136-145) 07/31/22 06:07 Potassium 3.7 mEq/L (3.5-5.1) 07/31/22 06:07 BUN 9 mg/dL (7-18) 07/31/22 06:07 Creatinine 0.78 mg/dL (0.55-1.02) 07/31/22 06:07 Glucose 115 mg/dL (74-106) H 07/31/22 06:07 Phosphorus 2.0 mg/dL (2.5-4.9) L 07/30/22 14:11 Magnesium 2.0 mg/dL (1.6-2.4) 07/30/22 14:11 Total Bilirubin 0.2 mg/dL (0.2-1.0) 07/30/22 08:58 AST 22 U/L (15-37) 07/30/22 08:58 ALT 38 U/L (13-56) 07/30/22 08:58 Alkaline Phosphatase 81 U/L (45-117) 07/30/22 08:58 Triglycerides 74 mg/dL (<150) 07/30/22 14:11 Cholesterol 231 mg/dL (<200) H 07/30/22 14:11 HDL Cholesterol 84 mg/dL (40-60) H 07/30/22 14:11 Cholesterol/HDL Ratio 2.75 07/30/22 14:11 Home Medications: Mesalamine [Lialda] 1.2 gm PO BID 06/29/11 Lisinopril [Zestril] 40 mg PO DAILY WITH BREAKFAST 12/12/15 Spironolactone [Aldactone*] 25 mg PO DAILY 12/12/15 Aspirin Chewable [Aspirin Chewable*] 81 mg PO DAILY #30 tab.chew 07/31/22 Atorvastatin Calcium [Lipitor] 40 mg PO BEDTIME #30 tab 07/31/22 Clopidogrel Bisulfate [Plavix*] 75 mg PO DAILY #30 tab 07/31/22 Metoprolol Tartrate [Lopressor*] 25 mg PO BID #60 tab 07/31/22 New Medications: Aspirin Chewable [Aspirin Chewable*] 81 mg PO DAILY #30 tab.chew Atorvastatin Calcium [Lipitor] 40 mg PO BEDTIME #30 tab Metoprolol Tartrate [Lopressor*] 25 mg PO BID #60 tab Clopidogrel Bisulfate [Plavix*] 75 mg PO DAILY #30 tab Diet: AHA Activity: Ad jacqueline Followup: Nathanael Juares MD [Primary Care Provider] - (Call to schedule appointment) Charlie Paz MD [ACTIVE - CAN ADMIT] - (Within 2 weeks ) Time spent managing pt's care (in minutes): 33
[2022-07-31] MEDS ORDERED: ENOXAPARIN 40 MG/0.4 ML SQ SCH (09:00)
[2022-07-31] MEDS ORDERED: ASPIRIN 81 MG CHEWABLE TABLET PO SCH (09:00)
[2022-07-31] MEDS ORDERED: CLOPIDOGREL 75 MG TABLET PO SCH (09:00)
[2022-07-31 12:55] VITALS: BP 129/73; TEMP 97.1
--- NOTE | 2022-08-01 08:38 | ECHO ---
HEIGHT: 5 ft 1 in WEIGHT: 159 lb 15.831 oz DATE OF STUDY: 07/31/[address]: José Miguel Salmeron 2-DIMENSIONAL: YES M.MODE: YES DOPPLER: YES COLOR FLOW: YES TDS: NO PORTABLE: YES DEFINITY: NO BUBBLE STUDY: NO DIAGNOSIS: CHEST PAIN CARDIAC HISTORY: CATHERIZATION: NO SURGERY: NO PROSTHETIC VALVE: NO PACEMAKER: NO MEASUREMENTS (cm) DIASTOLIC (NORMALS) SYSTOLIC (NORMALS) IVSd 1.1 (0.6-1.2) LA Diam 2.8 (1.9-4.0) LVEF 59% LVIDd 4.3 (3.5-5.7) LVIDs 3.0 (2.0-3.5) %FS 31% LVPWd 1.2 (0.6-1.2) Ao Diam 2.1 (2.0-3.7) 2 DIMENSIONAL ASSESSMENT: RIGHT ATRIUM: NORMAL LEFT ATRIUM: NORMAL RIGHT VENTRICLE: NORMAL LEFT VENTRICLE: NORMAL TRICUSPID VALVE: NORMAL MITRAL VALVE: NORMAL PULMONIC VALVE: NORMAL AORTIC VALVE: NORMAL PERICARDIAL EFFUSION: NONE AORTIC ROOT: NORMAL LEFT VENTRICULAR WALL MOTION: NORMAL DOPPLER/COLOR FLOW: MILD TRICUSPID REGURGITATION. COMMENTS: 1. MILD TRICUSPID REGURGITATION. 2. NORMAL LEFT VENTRICULAR SIZE AND FUNCTION. 3. NORMAL RIGHT VENTRICULAR SYSTOLIC PRESSURE. TECHNOLOGIST: WAN VICTORIA
--- NOTE | 2022-08-01 13:02 | PN ---
The patient was admitted on 07/30/2022, was taken to the photofinishing laboratory worker by Dr. Paz, underwent heart cath eterization. She was having jaw pain and arm pain and chest pain before the procedure. Today, she i s not having any more symptoms, but catheterization site is adequate. She has had no telemetry. No evidence of congestive heart failure. Prior to this, the patient was not really taking much in way m edicine except for Zestril and Aldactone for blood pressure. She now has significant coronary artery disease. She should be going home on her home medications plus aspirin, statin, and either Plavix o r Brilinta and I will leave that up to Dr. Ellis and Dr. Paz. We will see her in the office soon. KARAN/TERELL Voice ID: [id number] Report ID: [id number]
--- NOTE | 2022-08-01 13:50 | CON ---
Date of Consultation: 07/31/2022 Reason For Consultation: Chest pain. History Of Present Illness: Ms. Tavera is a 61-year-old black woman, who has no previous cardiac hist ory except for hypertension. She was exercising as she usually does. Over the last 2-3 times, she h as exercised. After she gets done, she developed this chest pain and that did not last long today; h owever, it lasted long and went up to her neck and jaw. Does not have any nausea. She did have some diaphoresis. Denied vomit. In the emergency room; her EKG is unremarkable, chest x-ray is normal, but her first troponin is mildly elevated. Second troponin was pending. She is asymptomatic now. T elemetry shows sinus rhythm. Past Medical History: As stated above. Allergies: SHE IS ALLERGIC TO FLAGYL. Medications: At home include Zestril and Aldactone. Review of Systems: Negative. Social History: Negative. Family History: Positive for heart disease. Physical Examination: Vital Signs: Stable, afebrile. HEENT: Negative. Neck: Supple with no bruit. Chest: Clear to auscultation and percussion. Cardiac: Revealed a regular rhythm and rate. No murmurs, gallops, or rubs. Abdomen: Benign. Extremities: Revealed no clubbing, cyanosis, or edema. Diagnostic Data: As stated earlier. Impression And Plan: Symptoms suggestive of unstable angina with chest pain radiating to the arm and jaw with a positive troponin. The patient with high risk factor profile including hypertension and dyslipidemia. She is stable hemodynamically. EKG is normal, rhythm is normal. Case was discussed w ith her and her daughter and Dr. Ellis. We will plan to take her to the labor commissioner today to define her coronary anatomy. The catheterization will be done by Dr. Paz. The patient understands the risk and the benefits of the procedure. She agreed to proceed. KARAN/TERELL Voice ID: [id number] Report ID: [id number]
== END 2022-07-31 12:39 | disposition home or self-care (01) ==
LOC: ER 08:04 → ERHOLD 10:34 → 2ND 12:55
PROVIDERS: ADMIT Hospitalist; ATTEND Internal Medicine
DX: I21.4 Non-ST elevation (NSTEMI) myocardial infarction (principal); I25.10 Atherosclerotic heart disease of native coronary artery without angina pectoris; I12.9 Hypertensive chronic kidney disease with stage 1 through stage 4 chronic kidney disease, or unspecified chronic kidney disease; N18.2 Chronic kidney disease, stage 2 (mild); R51.9 Headache, unspecified; K51.90 Ulcerative colitis, unspecified, without complications; R52 Pain, unspecified; E66.9 Obesity, unspecified; Z68.30 Body mass index [BMI] 30.0-30.9, adult; Z71.3 Dietary counseling and surveillance; Z79.899 Other long term (current) drug therapy; Z88.3 Allergy status to other anti-infective agents
CPT/HCPCS: 93005; 93306; 85025 ×2; 81001; 80048 ×2; 36415 ×2; 83735 ×2; 84100; 80061; 80076; 85347 ×2; 85730 ×4; 84443; 83036; 84484 ×2; 84439; 71045; 92928; 93458; 76937; 99285; C1893; C1760; Q9967; G0269; C1725; J2001; J3010; J7040; G0378; J0461; J1644; J2250

== ENCOUNTER 2022-09-03 06:30 | Observation (INO) | payer BC ==
[2022-08-31 14:27] LABS: Potassium 3.7 mEq/L (3.5-5.1)
[2022-08-31 15:34] LABS: Hematocrit 42.3 % (36.0-45.0); MPV 7.6 fL (7.6-11.3)
[2022-08-31 15:52] LABS: Protime INR 1.02
[2022-09-03] MEDS ORDERED: FENTANYL CITR 100 MCG/2 ML ONE (06:47)
[2022-09-03] MEDS ORDERED: HEPA 1000U/500MLS 2,000 UNIT/1,000 ML BAG IV ONE (06:47)
[2022-09-03] MEDS ORDERED: NITROGLYCERIN 100 MCG/ML SYR (for cath lab use only) IV ONE (06:48)
[2022-09-03] MEDS ORDERED: HEPARIN 5000 UNIT/ML 1 ML VIAL ONE (06:48)
[2022-09-03] MEDS ORDERED: MIDAZOLAM HCL 2 MG/2 ML INJ ONE (06:48)
[2022-09-03] MEDS ORDERED: VERAPAMIL HCL 10 MG/4 ML VIAL IV ONE (06:48)
[2022-09-03] MEDS ORDERED: TICAGRELOR 90 MG TABLET PO ONE (06:48)
[2022-09-03] MEDS ORDERED: HEPARIN 10,000 UNIT/10 ML VIAL IV ONE (06:48)
[2022-09-03] MEDS ORDERED: NITROGLYCERIN/D5W 25 MG/250 ML BTL IV ONE (06:49)
[2022-09-03] MEDS ORDERED: ATROPINE SULF 1 MG/10 ML SYR IV ONE (06:49)
[2022-09-03] MEDS ORDERED: CLOPIDOGREL 75 MG TABLET ONE (06:49)
[2022-09-03] MEDS ORDERED: ASPIRIN 325 MG TAB ONE (06:49)
[2022-09-03] MEDS ORDERED: LIDOCAINE 1% 20 ML MDV ONE (06:50)
[2022-09-03] MEDS ORDERED: NA CHLORIDE 0.9% 500 ML ONE (06:56)
--- NOTE | 2022-09-03 09:56 | OP ---
Date of Procedure: 09/03/2022 Surgeon: CURT BETTS Procedures Performed: 1.Selective coronary angiogram. 2.Left heart catheterization. 3.PCI of severe mid LAD stenosis. I used 2.75 x 12 mm Synergy drug-eluting stent. Indication: Known severe mid LAD stenosis with chest pain. Access: Right radial artery 6-[place] closed with TR band. Complications: None. Bleeding: Less than 20 mL. Anesthesia: Total sedation time was 45 minutes. Description Of Procedure: After risks, benefits, and alternatives were explained, the patient agreed to procedure and signed informed consent. The patient was brought into the cardiac catheterization laboratory, prepped and draped in the usual sterile fashion. Then, I accessed right radial artery us ing pediatric micropuncture kit, placed a 6-[place] Slender sheath, took 5-[place] 4.0 catheter i nto the aortic root, engaged left main, took standard views and gave systemic heparin to assure ACT l evel above 250. Then, I took a 6-[place] XB3.5 into the aortic root over a J-wire, engaged left main and I took short Run-Through wire into the LAD, placed it distally and the lesion was pre-dilated usi ng a 2.5 balloon to high pressure and then placed 2.75 x 12 mm Synergy drug-eluting stent with excell ent angiographic results and then removed the wire, the guide and sheath, and placed TR band with goo d hemostasis. Findings: 1.Left main; large and normal. 2.LAD; mid LAD 80% to 90%, status post successful PCI as above and the diagonal 1 branch stent is wi surinder patent. 3.Left circumflex; small, dominant, luminal regularities. 4.Normal LVEDP at 6 mmHg. Conclusion: Severe mid LAD stenosis, status post successful PCI as above. Plan: Aspirin, Plavix, statin, and follow up in 4 weeks in the office. SR/MODL Voice ID: [id number] Report ID: [id number]
--- NOTE | 2022-09-03 11:51 | EKG ---
Test Date: 2022-08-31 Test Time: 13:44:08 Director Of Instruction: BARBY MEASUREMENT RESULTS: Intervals: Rate: 86 MT: 126 QRSD: 76 QT: 358 QTc: 428 [place]: P: 51 MT: 126 QRS: 73 T: 49 INTERPRETIVE STATEMENTS: Normal sinus rhythm Possible Left atrial enlargement Borderline ECG Compared to ECG 07/30/2022 08:21:57 No significant changes Electronically Signed On 09-03-22 11:46:34 CDT by Charlie Paz
[2022-09-03] MEDS ORDERED: ACETAMINOPHEN 325 MG TABLET ONE (13:01)
--- OUTSIDE RECORDS SUMMARY | 2022-09-03 16:05 | XMS REPORT | Clinical Summary ---
:1960 Author Organization [facility] MD [facility] Address [address] [place] [address] Care Team Providers Name Role Phone Sarina [...] Vaccination (#1) 05/29/1961 Results Not on fileafter 09/03/2021 Insurance Payer Benefit Plan / Subscriber ID Effective Dates Phone Addre ss Type Group [facility] [id number] 2018-Presen [address] [facility] [place] [address] [address] (Home) [facility] [phone] [place] [address] (Work) Darlene Tavera Personal/Family Self 1960 [address] (Home) [facility] [phone] [place] [address] (Work) Darlene Tavera Personal/Family Self 1960 [address] (Home) [facility] [phone] [place] [address] (Work) Care Teams Wound Care Physician Relationship Specialty Start Date End Date Sarina Ariza, PCP - External Referring Obstetrics/Gynecology 09/22/[address] [place] [id number] Physician, Outside PCP - General Oncology 01/08/19 [place] [address]
--- OUTSIDE RECORDS SUMMARY | 2022-09-03 16:06 | XMS REPORT | Continuity of Care Document ---
:1960 Author Organization [facility] t Address [address] [place] [address] Care Team Providers Name Role Phone Physician, Outside Primary Care Physician Unavailable Rubina Stallings LVN Attending Clinician Unavailable Germania MOREAU, Brandy Attending Clinician Unavailable Nyasia Longo MA Attending Clinician Unavailable Andres PEREZ, Nayeli Dacosta Attending Clinician DEVONTE MICHELLE I Attending Clinician Unavailable Yolanda Hyman RN Attending Clinician Unavailable Only, Ang Db Test Attending Clinician Unavailable Unknown, Attending Attending Clinician Unavailable HANK GARZA Attending Clinician Unavailable Payers Payer Name Policy Type Policy Number Effective Date Expiration Date S leena BCBS 2 [id number] 2022 00:00:00 Problems This patient has no known problems. Allergies, Adverse Reactions, Alerts Allergy Allergy Status Severity Reaction(s) Onset Inactive Treating Comm ents Source Name Type Date Date Clinician NO KNOWN Drug Active Univers ALLERGIE Class ity of S [facility] Social History Social Habit Start Date Stop Date Quantity Comments Source Exposure to Not sure University SARS-CoV-2 (event) [facility] History of tobacco Current smoker [facility] Tobacco use and 2022-07-12 2022-07-12 Smokeless [facility] exposure 00:00:00 00:00:00 tobacco non-user Hospital Alcohol intake 2022-07-12 2022-07-12 Ex-drinker [facility] 00:00:00 00:00:00 (finding) Hospital History of Social 2022-07-12 2022-07-[address] function 00:00:00 00:00:00 Hospital Sex Assigned At [birth year] [facility] y of 00:00:00 00:00:00 [facility] Smoking Status Start Date Stop Date Source Unknown if ever [facility] Ex-smoker 2022-07-12 00:00:00 2022-07-12 00:00:00 [facility] Medications Ordered Filled Start Stop Current Ordering Indication Dosage Frequency Signature Comments Components Source Medication Medication Date Date Medication? Clinician (SIG) Name Name lisinopriL Yes 40mg QD Take 1 Metho di (PRINIVIL) 5-08 tablet (40 st 40 mg 00:00: mg total) Hospita tablet 00 by mouth l daily. spironolact Yes 25mg QD Take 1 Meth yris one 5-08 tablet (25 st (ALDACTONE) 00:00: mg total) H ospita 25 MG 00 by mouth l tablet every morning. mesalamine Yes 4.8mg Take 4.8 Me thodi (LIALDA) 4-[address] 1.2 gram EC 00:00: mouth. Hosp b[facility]on tablet 00 Take 2 l tablets twice daily No known 2020-02 No Univers medications 2-19 ity of 09:07: [address] No known 2020-02 No Univers medications 2-19 ity of 09:07: [address] Vital Signs Vital Name Observation Time Observation Value Comments Source Systolic blood 2022-07-12 19:31:00 113 mm[Hg] [facility] pressure Diastolic blood 2022-07-12 19:31:00 73 mm[Hg] [facility] pressure Heart rate 2022-07-12 19:31:00 88 /min [facility] Body height 2022-07-12 19:31:00 154.9 cm [facility] Body weight 2022-07-12 19:31:00 73.029 kg [facility] BMI 2022-07-12 19:31:00 30.42 kg/m2 [facility] Procedures Procedure Date / Time Performing Clinician Source Performed FECAL CALPROTECTIN 2022-07-14 15:46:00 [facility] 2022-07-12 20:16:00 [facility] C-REACTIVE PROTEIN 2022-07-12 20:16:00 [facility] SEDIMENTATION RATE 2022-07-12 20:16:00 [facility] TOTAL IRON BINDING 2022-07-12 20:16:00 [facility] CAPACITY FERRITIN LEVEL 2022-07-12 20:16:00 [facility] spital VITAMIN D 25 HYDROXY 2022-07-12 20:16:00 [facility] Plan of Care Planned Activity Planned Date Details Comments Source Future Scheduled 2022-08-31 Screening for [facility] Test 14:34:21 malignant neoplasm of colon (procedure) [code = 455193640] Future Scheduled 2022-08-31 Screening for [facility] Test 14:34:21 malignant neoplasm of colon (procedure) [code = 480816861] Future Scheduled 2022-08-31 COVID-19 VACCINE (#1) [facility] Test 14:34:21 [code = COVID-19 VACCINE (#1)] Future Scheduled 2022-08-31 Hepatitis C screening [facility] Test 14:34:21 (procedure) [code = 077524332] Future Scheduled 2022-08-31 Screening for [facility] Test 14:34:21 malignant neoplasm of cervix (procedure) [code = 001108748] Future Scheduled 2022-08-31 Screening for [facility] Test 14:34:21 malignant neoplasm of colon (procedure) [code = 878231536] Future Scheduled 2022-08-31 SHINGLES VACCINES (1 Met [facility] Test 14:34:21 of 2) [code = SHINGLES VACCINES (1 of 2)] Future Scheduled 2022-08-31 BREAST CANCER [facility] Test 14:34:21 SCREENING [code = BREAST CANCER SCREENING] Future Scheduled 2022-08-31 Screening for [facility] Test 14:34:21 malignant neoplasm of colon (procedure) [code = 040643128] Future Scheduled 2022-08-31 Screening for [facility] Test 14:34:21 malignant neoplasm of colon (procedure) [code = 643210474] Future Scheduled 2022-08-31 INFLUENZA VACCINE [facility] Test 14:34:21 [code = INFLUENZA VACCINE] Future Scheduled 2021-08-23 COVID-19 Vaccination [facility] Test 06:25:57 (#1) [code = COVID-19 [facility] (#1[facility] Center Future Scheduled 2021-08-23 COVID-19 Vaccination [facility] Test 06:25:57 (#1) [code = COVID-19 [facility] (#1)] Center Encounters Start End Encounter Admission Attending Care Care Encounter Source Date/Time Date/Time Type Type Clinicians Facility Department ID 2022-07-26 2022-07-26 Telephone Haylie, 1.2.840.1 [id number] Methodi 00:00:00 00:00:[address] 3.430.2.7 Hospit a .3.111522 l .8 2022-07-20 2022-07-20 Orders [place], 1.2.840.1 [id number] Methodi 00:00:00 00:00:00 Only Brandy [address]279.1.[address] 3.430.2.7 Hospit a .3.115097 l .8 2022-07-20 2022-07-20 Telephone [place], 1.2.840.1 [id number] Methodi 00:00:00 00:00:[address] 3.430.2.7 Hospit a .3.508410 l .8 2022-07-18 2022-07-18 Telephone Haylie, 1.2.840.1 [id number] Methodi 00:00:00 00:00:[address] 3.430.2.7 Hospit a .3.069726 l .8 2022-07-12 2022-07-12 Office [facility], 1.2.840.1 [id number] Methodi 15:00:00 15:27:55 Visit Nayeli L. 96708.1.[address] 3.430.2.7 Hospit a .3.194577 l .8 2022-07-12 2022-07-12 Outpatient [facility] [id number] [place] 00:00:00 00:00:00 NAYELI Enamorado Method i st 2022-07-12 2022-07-12 Travel 1.2.840.1 1.2.605.132 [id number] Methodi 00:00:00 00:00:[address] 3.430.2.7 0.2.7.3.698 Ho spita .3.337239 084.8 l .8 2022-05-28 2022-05-28 Telephone [place], 1.2.840.1 [id number] Methodi 00:00:00 00:00:[address] 3.430.2.7 Hospit a .3.166535 l .8 2022-04-27 2022-04-27 Telephone [place], 1.2.840.1 [id number] Methodi 00:00:00 00:00:[address] 3.430.2.7 Hospit a .3.989155 l .8 2022-04-16 2022-04-16 Telephone [place], 1.2.840.1 [id number] Methodi 00:00:00 00:00:[address] 3.430.2.7 Hospit a .3.279829 l .8 2022-04-12 2022-04-12 Outpatient KARINA MICHELLE [id number] Karina 11:15:00 11:15:00 DEVONTE francois 2021-02-23 2021-02-23 Letter DEVONTE Hyman 1.2.840.114 [id number] Univers 00:00:00 00:00:00 (Out) Yolanda [facility] 350.1.13.10 [facility] 4.2.7.2.686 Roc as [id number] [address] 2021-02-21 2021-02-21 Laboratory Only, Ang Db Test [facility] 1.2.8 40.114 [id number] Univers 13:00:00 13:15:00 Only Unknown, Attending HEALTH 350.1.13.10 ity [facility] 4.2.7.2.686 Roc as BERTRAM?BLEA [id number] [facility] [address] MEDICAL OFFICE BUILDING 2021-02-21 2021-02-21 Outpatient R KAYLA, [facility] [id number] Univers 13:00:00 13:01:05 HANK ity [facility] Results Test Description Test Time Test Comments Results Result Comments Source Fecal calprotectin 2022-07-21 21:55:00 Test Item Value Reference Range Interpretation Comme nts Fecal calprotectin (test 6 mcg/g Re ference Range: <50 Normal code = 88426-4) 50-120 Borde rline >120 Elevated Calpro tectin in Crohn's disease and ulcerative colitis canbe f tiera to several thousand times above the referencepopula tion (50 mcg/g or less). Level s are usually 50 mcg/gor less in healthy patients and wi th irritable bowelsyndrome. Repeat testing in 4-6 weeks is suggested forborderline v alues. CHRISTINE (test code = CHRISTINE) SPLIT 07/12/2022 FROM [id number] RAC (test code = RAC) Performing Organization Information: Site ID: [id number] Name: [facility], Address: [address] [place] [address] Director: Corina Sumner MD,PhD,KHRIS [facility] [id number] 11:14:00 Test Item Value Reference Range Interpretation Comments Ferritin level (test 69 ng/mL 16-288 code = 2276-4) CHRISTINE (test code = CHRISTINE) FASTING:NOCOLLECTION KIT GIVEN TO PATIENT. PATIENT ADVISED TO RETURN. FASTING: NO RAC (test code = RAC) Performing Organization Information: Site ID: RGA Name: [facility] Address: [address] [place] [phone] Director: Michael Zavaleta [facility]-reactive [id number] 11:14:00 Test Item Value Reference Range Interpretation Comments CRP (test code = 1.3 mg/L <=8.0 1988-5) CHRISTINE (test code = FASTING:NOCOLLECTION KIT CHRISTINE) GIVEN TO PATIENT. PATIENT ADVISED TO RETURN. FASTING: NO RAC (test code = Performing Organization RAC) Information: Site ID: LILYA Name: [facility] Address: [address] [place] [phone] Director: Michael Zavaleta [facility] [id number] 11:14:00 Test Item Value Reference Range Interpretation Comments WBC (test code = 5.5 See_Comment [Automated 6252-2) message] The system which generated this result transmit miladys reference range : 3.8 - 10.8 Thousand/uL. Th e reference range was not used to interpret this result as normal/abnormal . RBC (test code = 4.68 See_Comment [Automated 349-8) message] The system which generated this result transmit miladys reference range : 3.80 - 5.10 Million/uL. The reference range was not used to interpret this result as normal/abnormal . HGB (test code = 13.9 g/dL 11.7-15.5 718-7) HCT (test code = 40.3 % 35.0-45.0 4544-3) MCV (test code = 86.1 fL 80.0-100.0 787-2) MCH (test code = 29.7 pg 27.0-33.0 785-6) MCHC (test code 34.5 g/dL 32.0-36.0 = 786-4) RDW (test code = 13.3 % 11.0-15.0 788-0) Platelet count 275 See_Comment [Automated (test code = message] The 777-3) system which generated this result transmit miladys reference range : 140 - 400 Thousand/uL. Th e reference range was not used to interpret this result as normal/abnormal . MPV (test code = 10.4 fL 7.5-12.5 776-5) CHRISTINE (test code = FASTING:NOCOLLECTION CHRISTINE) KIT GIVEN TO PATIENT. PATIENT ADVISED TO RETURN. FASTING: NO RAC (test code = Performing RAC) Organization Information: Site ID: RGA Name: [facility] Address: [address] [place] [phone] Director: [facility] [id number] 11:14:00 Test Item Value Reference Range Interpretation Comments Sedimentation rate 22 mm/h See_Comment [Automat ed (test code = 4537-7) message ] The system which generated this result transmitted reference range : < OR = 30. The reference range was not used to interpret this result as normal/abnormal . CHRISTINE (test code = FASTING:NOCOLLECTI CHRISTINE) ON KIT GIVEN TO PATIENT. PATIENT ADVISED TO RETURN. FASTING: NO RAC (test code = Performing RAC) Organization Information: Site ID: [facility] Address: [address] [place] [phone] Director: [facility]igh[facility]itamin D 25 hydroxy [id number] 11:14:00 Test Item Value Reference Range Interpretation Comments Vitamin D, 62 ng/mL 30-100 Vitamin D Statu s 25-hydroxy (test 25-OH Vitam in D: code = 1989-3) Deficiency: < 20 ng/mLInsufficie ncy : 20 - 29 ng/mLOptimal: > or = 30 ng/mL For 25-OH Vitamin D testing on patients on D2-supplementat ion and patients fo r whom quantitati on of D2 and D3 fractions is required, the QuestAssureD(TM )25 -OH VIT D, (D2,D3), LC/MS/ MS is recommended: order code 9288 8 (patients >2yrs).See Note 1 Note 1 For additional information, please refer to http://educatio n.Q uestDiagnostics .co m/faq/WYL253 (T his link is being provided for informational/e kilo ational purpose s only.) CHRISTINE (test code = FASTING:NOCOLLECTION CHRISTINE) KIT GIVEN TO PATIENT. PATIENT ADVISED TO RETURN. FASTING: NO RAC (test code = Performing RAC) Organization Information: Site ID: [facility] Name: [facility] Address: [address] [place] [phone] Director: [facility] iron binding [id number] 11:14:00 Test Item Value Reference Range Interpretation Comments Iron level (test 62 See_Comment [Automated code = 2498-4) message] The system which generated this result transmit miladys reference range : 45 - 160 mcg/dL . The reference range was not u sed to interpret th is result as normal/abnormal . Iron binding 360 See_Comment [Automated capacity (test message] The code = 2500-7) system which generated this result transmit miladys reference range : 250 - 450 mcg/d L (calc). The reference range was not used to interpret this result as normal/abnormal . Iron saturation 17 See_Comment [Automated (test code = message] The 2502-3) system which generated this result transmit miladys reference range : 16 - 45 % (calc ). The reference range was not u sed to interpret th is result as normal/abnormal . CHRISTINE (test code = FASTING:NOCOLLECTIO CHRISTINE) N KIT GIVEN TO PATIENT. PATIENT ADVISED TO RETURN. FASTING: NO RAC (test code = Performing RAC) Organization Information: Site ID: RGA Name: [facility] Address: [address] [place] [phone] Director: Michael Juma Diet[facility]El[facility]
--- NOTE | 2022-09-03 19:17 | CON ---
Date of Consultation: 09/03/2022 Reason For Consultation: Arm swelling, post heart cath. History Of Present Illness: A 61-year-old female with history of hypertension, coronary artery disea se, status post PCI of the diagonal 1 branch and today she had a PCI of the mid LAD. She did well; h owever, postprocedure started having swelling in her right arm that was radial access. Pressure was held and the swelling has improved and decided to admit overnight for observation. Past Medical History: Coronary artery disease, hypertension, dyslipidemia, , and ulcerativ e colitis. Medications: Refer to reconciliation sheet for detailed list. Allergies: NO KNOWN DRUG ALLERGIES. Family History: No premature coronary artery disease or cancer. Social History: She does not smoke or drink. Does not use any drugs. Review of Systems: All systems reviewed and they were negative except what mentioned in HPI. Physical Examination: Vital Signs: Reviewed. Head and Neck: Pupils are equal, reactive to light. Intact eye movements. No JVD. No cervical lym phadenopathy. Neck is supple. Thyroid is not enlarged. Lungs: Clear to auscultation bilaterally. No rhonchi, wheezing, or crackles. No accessory muscle u se. Heart: Regular rate and rhythm. No extra sounds. Abdomen: Soft, nontender. Bowel sounds positive. No organomegaly. No masses or hernia. No rigidi ty or rebound. Extremities: No edema, clubbing, or cyanosis. Intact pulses. Skin: No rash. Neurologic: Alert, awake, oriented x3. No acute focal deficits appreciated. Investigation: No labs were done yet today. Assessment And Recommendations: 1.Right forearm swelling, post heart catheterization. Local pressure was applied and I do not see a ctive bleeding and the swelling has improved and we will monitor overnight. If no worsening by tomor row, the patient can be released on aspirin, Plavix, and high-dose statin, to follow up as an outpati ent. 2.Coronary artery disease, status post percutaneous coronary intervention of mid LAD today. Continu e aspirin, Plavix, and statin. 3.Dyslipidemia. Recommend Lipitor 40 mg at bedtime. SR/MODL Voice ID: [id number] Report ID: [id number]
[2022-09-03] MEDS ORDERED: ACETAMINOPHEN 325 MG TABLET PO PRN (19:57)
[2022-09-03] MEDS ORDERED: NITROGLYCERIN 0.4 MG/TAB SL PRN (19:57)
[2022-09-03] MEDS ORDERED: ATORVASTATIN 40 MG TAB PO SCH (21:00)
[2022-09-03 23:02] VITALS: BMI 30.2
[2022-09-04 02:59] LABS: Absolute Lymphocytes (CBC) 1.8 K/uL (0.7-4.9); Lymphocytes % 32.5 % (15.3-44.8); MCV 90.8 fL (80-100); MPV 7.2 fL (7.6-11.3); RBC Red Blood Cell Count 4.07 M/uL (3.86-4.86)
[2022-09-04 03:10] LABS: Potassium 4.1 mEq/L (3.5-5.1)
[2022-09-04] MEDS ORDERED: MESALAMINE 400 MG CAPSULE.DR PO SCH (08:00)
[2022-09-04 08:50] VITALS: BP 109/72; TEMP 97
[2022-09-04] MEDS ORDERED: CLOPIDOGREL 75 MG TABLET PO SCH (09:00)
[2022-09-04] MEDS ORDERED: SPIRONOLACTONE 25 MG TABLET PO SCH (09:00)
[2022-09-04] MEDS ORDERED: ASPIRIN 81 MG CHEWABLE TABLET PO SCH (09:00)
[2022-09-04] MEDS ORDERED: lisinopriL 20 MG TAB PO SCH (09:00)
[2022-09-04 10:56] VITALS: O2SAT 98
--- NOTE | 2022-09-04 15:44 | PN ---
Date of Progress Note: 09/04/2022 The patient feels fine this morning. There was some evidence of ecchymosis at the site of the proced ure in the right wrist, minimal discomfort in the anterior forearm. No extension beyond the elbow. No evidence of any infectious process. The patient will be discharged to follow up with Cardiology i n 1 week. HR/MODL Voice ID: [id number] Report ID: [id number]
== END 2022-09-04 12:30 | disposition home or self-care (01) ==
LOC: CCL 06:30 → 2ND 07:15
PROVIDERS: ADMIT Family Medicine; ATTEND Family Medicine
DX: I25.10 Atherosclerotic heart disease of native coronary artery without angina pectoris (principal); I10 Essential (primary) hypertension; E78.2 Mixed hyperlipidemia; M79.89 Other specified soft tissue disorders; K51.90 Ulcerative colitis, unspecified, without complications; Z95.5 Presence of coronary angioplasty implant and graft; Z87.891 Personal history of nicotine dependence; Z79.82 Long term (current) use of aspirin; Z79.899 Other long term (current) drug therapy; Z82.49 Family history of ischemic heart disease and other diseases of the circulatory system
CPT/HCPCS: 93005; 85025 ×2; 80048 ×2; 36415 ×2; 85610; 85347; 85730; 92928; 93454; 76937; C1893; Q9966; C1725; J1644; J2001; J2250; J3010; J7040; G0379; G0378 ×2; J0461

== ENCOUNTER 2023-03-04 13:05 | Inpatient (IN) | payer BC, SELFPAY ==
--- OUTSIDE RECORDS SUMMARY | 2023-03-04 13:08 | XMS REPORT | Clinical Summary ---
Author Name Unknown Organization 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 Name Role Phone Sarina Ariza MD Unavailable [phone] Physician, Outside Primary Care Provider Unavail able Social History Tobacco Use Types Packs/Day Years Used Date Smoking Tobacco: Never Assessed Sex and Gender Information Value Date Recorded Sex Assigned at Not on file Gender Identity Not on file Sexual Orientation Not on file Plan of Treatment Health Maintenance Due Date Last Done Comments COVID-19 Vaccination (#1) 05/29/1961 Care Teams Trimmer And Borer Machine Operator Relationship Specialty Start Date End Date Sarina Ariza MD [address] [place] [id number] PCP - External Referring Obstetrics/Gynecology 09/22/18 Physician, [place] [address] PCP - General Oncology 01/08/19
[2023-03-04] MEDS ORDERED: ASPIRIN 81 MG CHEWABLE TABLET ONE (13:40)
--- NOTE | 2023-03-04 14:13 | RAD REPORT ---
EXAM DESCRIPTION: RAD - Chest Single View - 03/04/2023 2:08 pm CLINICAL HISTORY: CHEST PAIN Chest pain. COMPARISON: <Comparisons> FINDINGS: Portable technique limits examination quality. The lungs are grossly clear. The heart is normal in size. No displaced fractures.Aortic atheroscleros is. IMPRESSION: No acute intrathoracic process suspected.
[2023-03-04 15:08] LABS: Absolute Lymphocytes (CBC) 2.3 K/uL (0.7-4.9); Hematocrit 40.2 % (36.0-45.0); Lymphocytes % 38.4 % (15.3-44.8); MPV 7.4 fL (7.6-11.3); Platelets 261 thou/uL (152-406); RBC Red Blood Cell Count 4.51 M/uL (3.86-4.86)
[2023-03-04 15:30] LABS: Albumin 3.6 g/dL (3.4-5.0); Bilirubin Direct 0.1 mg/dL (0-0.2); Bilirubin Indirect, Calculated 0.3 mg/dL (0.2-0.8); Bilirubin Total 0.4 mg/dL (0.2-1.0); Potassium 3.6 mEq/L (3.5-5.1); Protein, Total 7.8 g/dL (6.4-8.2)
[2023-03-04 15:40] LABS: Troponin High Sensitivity 257.4 pg/mL (<58.9)
--- NOTE | 2023-03-04 16:01 | ER ---
Nurse's Notes [facility] Name: Darlene Tavera Age: 62 yrs Sex: Female : 1960 Arrival Date: 03/04/2023 Time: 13:05 Bed 6 Private MD: Diagnosis: Subsequent non-ST elevation (NSTEMI) myocardial infarction Presentation: 03/04 13:18 Chief complaint: Patient states: "I just haven't been feeling right over the last aa5 week". pt reports SOB on exertion, feeling tired, and chest discomfort. 13:18 Coronavirus screen: fatigue. Ebola Screen: Patient denies travel to an Ebola-affected [facility] area in the 21 days before illness onset. Initial Sepsis Screen: Does the patient meet any 2 criteria? No. Patient's initial sepsis screen is negative. Does the patient have a suspected source of infection? No. Patient's initial sepsis screen is negative. Risk Assessment: Do you want to hurt yourself or someone else? Patient reports no desire to harm self or others. Onset of symptoms was February 2023. 13:18 Method Of Arrival: Ambulatory [facility] 13:18 Acuity: MIMI 3 aa5 Historical: - Allergies: 13:30 metronidazole; aa5 - PMHx: 13:30 Colitis; Hypertension; Myocardial infarction; aa5 - PSHx: 13:30 heart stents x 2; aa5 - Immunization history:: Adult Immunizations unknown. - Social history:: Smoking status: Patient denies any tobacco usage or history of. Screenin:51 [facility] ED Fall Risk Assessment (Adult) History of falling in the last 3 months, ap3 including since admission No falls in past 3 months (0 pts). Abuse screen: Denies threats or abuse. Nutritional screening: No deficits noted. Tuberculosis screening: No symptoms or risk factors identified. Assessment: 13:52 General: Appears in no apparent distress. Behavior is calm, cooperative, appropriate ap3 for age. Pain: Denies pain. Pain does not radiate. Pain began. Neuro: Level of Consciousness is awake, alert, obeys commands, Oriented to person, place, time, situation. Cardiovascular: Patient's skin is warm and dry. Respiratory: Airway is patent Respiratory effort is even, unlabored, Respiratory pattern is regular, symmetrical. 17:04 Reassessment: Attempt report, no answer. tl4 Vital Signs: 13:18 BP 153 / 95; Pulse 82; Resp 16 S; Temp 97.9(O); Pulse Ox 100% on R/A; Weight 72.57 kg aa5 (R); Height 5 ft. 1 in. (R); 16:09 BP 148 / 90; Pulse 78; Resp 15; Pulse Ox 99% ; ko1 17:12 BP 153 / 95; Pulse 81; Resp 17; Pulse Ox 99% ; Pain 0/10; tl4 13:18 Body Mass Index 30.23 (72.57 kg, 154.94 cm) aa5 17:12 Pain Scale: Adult tl4 ED Course: 13:09 Patient arrived in ED. mg5 13:10 Servando Stone MD is Attending Physician. rt 13:18 Arm band placed on Patient placed in an exam room, on a stretcher. aa5 13:32 Triage completed. aa5 13:51 patient monitor on. Pulse ox on. NIBP on. ap3 13:51 Patient has correct armband on for positive identification. Placed in gown. Bed in low ap3 position. Call light in reach. Side rails up X 1. 13:51 Patient maintains SpO2 saturation greater than 95% on room air. ap3 13:56 Maya Osei, JF is Primary Nurse. ko1 14:10 XRAY Chest (1 view) In Process Unspecified. EDMS 15:03 Initial lab(s) drawn, by me, sent to lab. Inserted saline lock: 20 gauge in right cm10 forearm, using aseptic technique. Blood collected. 16:00 Nathanael Juares MD is Hospitalizing Provider. rt 16:09 Provided Education on: na. Door closed. Noise minimized. Lights dimmed. ko1 16:09 No provider procedures requiring assistance completed. Patient admitted, IV remains in ko1 place. Administered Medications: 13:49 Drug: Aspirin PO Chewable Tablet 243 mg PO once; 81 mg tablets x 3 Route: PO; ap3 17:14 Follow up: Response: No adverse reaction tl4 Medication: 13:51 VIS not applicable for this client. ap3 Outcome: 16:01 Decision to Hospitalize by Provider. rt 17:13 Admitted to Med/surg accompanied by tech, via stretcher, room 213, with chart, Report tl4 called to JF Bertrand 17:13 Condition: stable 17:13 Instructed on the need for admit, 17:21 Patient left the ED. tl4 Signatures: Dispatcher [employer] EDDaysi Fine, RN RN aa5 Shana Henriquez RN RN ap3 Maya Osei RN RN ko1 Servando Stone MD MD rt Martinez, Clarissa, RN RN cm10 Robyn Kirkland 5 Eduard Ferguson tl4
--- NOTE | 2023-03-04 16:01 | EDPHYS ---
Physician Documentation [facility] Name: Darlene Tavera Age: 62 yrs Sex: Female : 1960 Arrival Date: 03/04/2023 Time: 13:05 Bed 6 Private MD: ED Physician Servando Stone HPI: 03/04 13:48 This 62 yrs old Black Female presents to ER via Ambulatory with complaints of Chest rt Pain - Discomfort, Shortness Of Breath. 13:48 Patient presents to the ED with about 3 days of an intermittent chest discomfort or rt shortness of breath. This is worse with exertion. She stated that initially felt like it was indigestion. States that she did have some pain to her left arm. States that the symptoms are gone currently after resting. She did have 2 stents placed last year. Denies other acute complaints, symptoms are moderate in severity, no other aggravating or alleviating factors.. Historical: - Allergies: 13:30 metronidazole; aa5 - PMHx: 13:30 Colitis; Hypertension; Myocardial infarction; aa5 - PSHx: 13:30 heart stents x 2; aa5 - Immunization history:: Adult Immunizations unknown. - Social history:: Smoking status: Patient denies any tobacco usage or history of. ROS: 13:48 Constitutional: Negative for fever, chills, and weight loss, Abdomen/GI: Negative for rt abdominal pain, nausea, vomiting, diarrhea, and constipation, MS/Extremity: Negative for injury and deformity, Skin: Negative for injury, rash, and discoloration, Neuro: Negative for headache, weakness, numbness, tingling, and seizure, Psych: Negative for depression, anxiety, suicide ideation, homicidal ideation, and hallucinations, 13:48 Cardiovascular: Positive for chest pain, Negative for edema, 13:48 Respiratory: Positive for shortness of breath, Negative for cough, Exam: 13:48 Constitutional: This is a well developed, well nourished patient who is awake, alert, rt and in no acute distress. Head/Face: Normocephalic, atraumatic. Chest/axilla: Normal chest wall appearance and motion. Nontender with no deformity. No lesions are appreciated. Cardiovascular: Regular rate and rhythm with a normal S1 and S2. No gallops, murmurs, or rubs. Normal PMI, no JVD. No pulse deficits. Respiratory: Lungs have equal breath sounds bilaterally, clear to auscultation and percussion. No rales, rhonchi or wheezes noted. No increased work of breathing, no retractions or nasal flaring. Abdomen/GI: Soft, non-tender, with normal bowel sounds. No distension or tympany. No guarding or rebound. No evidence of tenderness throughout. Skin: Warm, dry with normal turgor. Normal color with no rashes, no lesions, and no evidence of cellulitis. MS/ Extremity: Pulses equal, no cyanosis. Neurovascular intact. Full, normal range of motion. Neuro: Awake and alert, GCS 15, oriented to person, place, time, and situation. Cranial nerves II-XII grossly intact. Motor strength 5/5 in all extremities. Sensory grossly intact. Cerebellar exam normal. Normal gait. Psych: Awake, alert, with orientation to person, place and time. Behavior, mood, and affect are within normal limits. 13:55 ECG was reviewed by the Attending Physician. rt Vital Signs: 13:18 BP 153 / 95; Pulse 82; Resp 16 S; Temp 97.9(O); Pulse Ox 100% on R/A; Weight 72.57 kg aa5 (R); Height 5 ft. 1 in. (R); 16:09 BP 148 / 90; Pulse 78; Resp 15; Pulse Ox 99% ; ko1 17:12 BP 153 / 95; Pulse 81; Resp 17; Pulse Ox 99% ; Pain 0/10; tl4 13:18 Body Mass Index 30.23 (72.57 kg, 154.94 cm) aa5 17:12 Pain Scale: Adult tl4 MDM: 13:20 Patient medically screened. rt 16:22 Differential diagnosis: Acute coronary syndrome, ACS, pneumonia, pneumothorax. HEART rt Score: History: Highly Suspicious (2), ECG: Non specific repolarization disturbance / LBTB / PM (1), Age: > 45 and < 65 years (1), Risk Factors: > or = 3 Risk factors for atherosclerotic disease (2), Troponin: > or = 3 x Normal Limit (2), Total Score = 8. The patient was given aspirin in the Emergency Department. Data reviewed: vital signs, nurses notes, lab test result(s), EKG, radiologic studies. Consideration of Admission/Observation Patient was admitted/placed on observation. Management of patient was discussed with the following: Lumber Kiln Operator: Discussed with patient's take down inspector, request heparin administration, n.p.o. after midnight and will cath in the morning. Primary Care Provider: Agrees to admit. I considered the following discharge prescriptions or medication management in the emergency department Medications were administered in the Emergency Department. See MAR. Independent interpretation of the following test(s) in the Emergency Department X-Ray: My interpretation is No pneumonia seen on interpretation of x-ray images. Test considered but Not performed: CT: Low suspicion for PE, CT angiogram not indicated. Care significantly affected by the following chronic conditions: CAD. Counseling: I had a detailed discussion with the patient and/or guardian regarding the historical points, exam findings, and any diagnostic results supporting the discharge/admit diagnosis, lab results, radiology results, the need for further work-up and treatment in the hospital. Response to treatment: the patient's symptoms have resolved after treatment. 03/04 13:29 Order name: Basic Metabolic Panel; Complete Time: 15:43 rt 03/04 13:29 Order name: CBC with Diff; Complete Time: 15:37 rt 03/04 13:30 Order name: LFT's; Complete Time: 15:43 rt 03/04 13:30 Order name: Magnesium; Complete Time: 15:43 rt 03/04 13:30 Order name: NT PRO-BNP; Complete Time: 15:43 rt 03/04 13:30 Order name: Troponin HS; Complete Time: 15:43 rt 03/04 16:00 Order name: Ptt, Activated rt 03/04 16:00 Order name: PT-INR rt 03/04 13:30 Order name: XRAY Chest (1 view); Complete Time: 14:25 rt 03/04 13:30 Order name: EKG; Complete Time: 13:30 rt 03/04 16:05 Order name: CONS Physician Consult EDMS 03/04 13:30 Order name: Cardiac monitoring; Complete Time: 13:37 rt 03/04 13:30 Order name: EKG - Nurse/Tech; Complete Time: 13:49 rt 03/04 13:30 Order name: IV Saline Lock; Complete Time: 15:03 rt 03/04 13:30 Order name: Labs collected and sent; Complete Time: 15:03 rt 03/04 13:30 Order name: O2 Per Protocol; Complete Time: 13:37 rt 03/04 13:30 Order name: O2 Sat Monitoring; Complete Time: 13:37 rt EC:55 Rate is 73 beats/min. Rhythm is regular, Normal Sinus Rhythm with No ectopy. QRS [place] rt is Normal. IA interval is normal. QRS interval is normal. QT interval is normal. No Q waves. No ST changes noted. Interpreted by me. Administered Medications: 13:49 Drug: Aspirin PO Chewable Tablet 243 mg PO once; 81 mg tablets x 3 Route: PO; ap3 17:14 Follow up: Response: No adverse reaction tl4 Disposition: 19:43 Critical Care:. rt Disposition Summary: 03/04/23 16:01 Hospitalization Ordered Notes: Hospitalization Status: Inpatient Admission rt Provider: Nathanael Juares rt Location: Telemetry/MedSurg (Inpatient) rt Condition: Fair rt Problem: new rt Symptoms: have improved rt Bed/Room Type: Standard rt Room Assignment: [facility](03/04/23 16:09) Diagnosis - Subsequent non-ST elevation (NSTEMI) myocardial infarction rt Forms: - Medication Reconciliation Form rt - SBAR form rt - Leadership Thank You Letter rt Critical care time excluding procedures: 19:43 Critical care time: Bedside Care: 30 minutes, Consultation: 10 minutes. Total time: 40 rt minutes Signatures: Dispatcher [employer] Elisa Monroy Audri, RN RN aa5 Shana Henriquez RN RN ap3 Maya Osei, RN RN ko1 Servando Stone MD MD rt Eduard Ferguson tl4 Corrections: (The following items were deleted from the chart) 16:09 16:01 rt bd
[2023-03-04] MEDS ORDERED: HEPARIN/D5W 25,000 UNIT/500 ML BAG IV SCH (17:40)
[2023-03-04 17:48] VITALS: BMI 30.9
[2023-03-04 17:48] LABS: Protime INR 1.05
[2023-03-04] MEDS ORDERED: ONDANSETRON 4 MG/2 ML VIAL IV PRN (18:08)
[2023-03-04] MEDS ORDERED: MORPHINE 2 MG/ML SYR IV PRN (18:08)
[2023-03-05 03:38] LABS: Absolute Lymphocytes (CBC) 2.5 K/uL (0.7-4.9); Hematocrit 39.3 % (36.0-45.0); Lymphocytes % 45.7 % (15.3-44.8); MCV 88.8 fL (80-100); MPV 7.4 fL (7.6-11.3); Platelets 235 thou/uL (152-406); RBC Red Blood Cell Count 4.43 M/uL (3.86-4.86)
[2023-03-05 03:58] LABS: Albumin 3.3 g/dL (3.4-5.0); Bilirubin Total 0.5 mg/dL (0.2-1.0); Potassium 3.5 mEq/L (3.5-5.1); Protein, Total 7.4 g/dL (6.4-8.2)
[2023-03-05 07:15] LABS: Specific Gravity 1.023 (1.005-1.030); Urine Bilirubin NEGATIVE (Negative); Urine Blood Negative (Negative); Urine Clarity Clear (Clear); Urine Color Yellow (Yellow); Urine Glucose NEGATIVE (Negative); Urine Protein NEGATIVE (Negative); Urine Urobilinogen Normal (Normal)
[2023-03-05] MEDS ORDERED: NITROGLYCERIN/D5W 25 MG/250 ML BTL IV ONE (07:26)
[2023-03-05] MEDS ORDERED: HEPA 1000U/500MLS 2,000 UNIT/1,000 ML BAG IV ONE (07:26)
[2023-03-05] MEDS ORDERED: LIDOCAINE 1% 20 ML MDV ONE (07:26)
[2023-03-05] MEDS ORDERED: VERAPAMIL HCL 10 MG/4 ML VIAL IV ONE (07:27)
[2023-03-05] MEDS ORDERED: HEPARIN 5000 UNIT/ML 1 ML VIAL ONE (07:27)
[2023-03-05] MEDS ORDERED: MIDAZOLAM HCL 2 MG/2 ML INJ ONE (07:27)
[2023-03-05] MEDS ORDERED: FENTANYL CITR 100 MCG/2 ML ONE (07:27)
[2023-03-05] MEDS ORDERED: HEPARIN 10,000 UNIT/10 ML VIAL IV ONE (07:28)
[2023-03-05] MEDS ORDERED: TICAGRELOR 90 MG TABLET PO ONE ×2 (07:28→08:11)
[2023-03-05] MEDS ORDERED: CLOPIDOGREL 75 MG TABLET ONE (07:28)
[2023-03-05] MEDS ORDERED: ASPIRIN 325 MG TAB ONE (07:29)
[2023-03-05] MEDS ORDERED: NA CHLORIDE 0.9% 500 ML ONE (07:33)
[2023-03-05] MEDS: ASPIRIN 81 MG CHEWABLE TABLET PO SCH (10:36)
--- NOTE | 2023-03-05 16:18 | CON ---
Date of Consultation: 03/05/2023 Reason For Consultation: Chest pain with elevated troponin. History Of Present Illness: This is a 62-year-old female very well known to me. She has history of significant coronary artery disease, status post PCI of the diagonal 1 and LAD. She did well for ronald e time and she was on aspirin and Plavix. She comes in with chest pain, pressure like, radiates to t he shoulder with minimal activity and became at rest along with significant shortness of breath with any activities that she does. Troponin was elevated. She is started on heparin drip and at the time of my evaluation, she was chest pain free. Past Medical History: Coronary artery disease, dyslipidemia, hypertension. Medications: Refer to reconciliation sheet for detailed list. Allergies: NO KNOWN DRUG ALLERGIES. Family History: No premature coronary artery disease or cancer. Social History: She does not smoke or drink. Does not use any drugs. Review of Systems: All systems reviewed and they were negative except as mentioned in the HPI. Physical Examination: Vital Signs: Reviewed. Head and Neck: Pupils are equal, reactive to light. Intact eye movements. No JVD. No cervical lym phadenopathy. Neck is supple. Thyroid is not enlarged. Lungs: Clear to auscultation bilaterally. No rhonchi, wheezing, or crackles. No accessory muscle u se. Heart: Regular rate and rhythm. No extra sounds. Abdomen: Soft, nontender. Bowel sounds positive. No organomegaly. No masses or hernia. No rigidi ty or rebound. Extremities: No edema, clubbing, or cyanosis. Intact pulses. Skin: No rash or nodule. Neurologic: Alert, awake, oriented x3. No acute focal deficits appreciated. Investigations: Labs were reviewed. Assessment And Recommendations: 1.Gcn-QD-rikrenvzs myocardial infarction. She is NPO. Plan for coronary angiogram today and PCI as needed. Continue IV heparin and aspirin. 2.Dyslipidemia. Continue statin. 3.Hypertension, blood pressure is controlled. Continue home medications. SR/MODL Voice ID: [id number] Report ID: [id number]
--- NOTE | 2023-03-05 16:39 | OP ---
Date of Procedure: 03/05/2023 Surgeon: CURT BETTS Procedure Performed: 1.Selective coronary geography. 2.Left heart catheterization. 3.PCI of critical mid LAD stenosis 99%, which is a culprit, used 3.0 x 8 mm Synergy drug-eluting john nt. 4.PCI of severe stenosis of the mid LAD distal to the stent, used 2.75 x 8 mm Synergy drug-eluting s tent. 5.PCI of mid diagonal 1 branch severe stenosis, used 2.5 x 8 mm Synergy drug-eluting stent. Indication: [id number]-bxplrhtnb myocardial infarction. Access: Right femoral artery 6-Ivorian closed with 6-Ivorian Angio-Seal. Complications: None. Bleeding: Less than 20 mL. Sedation: Total sedation time was 1 hour. Description Of Procedure: After risks, benefits, and alternatives were explained, the patient agreed to procedure and signed informed consent. The patient was brought into [facility], prepped and draped in the usual sterile fashion. Then, I accessed right femoral artery using micropuncture kit, ultrasound guidance, fluoroscopy, placed 6-Ivorian Weston sheath and took a 6-Fr ench JL4 catheter into the aortic root over a J-wire, engaged the left main, took standard views and exchanged for 6-Ivorian JR4 catheter, engaged the RCA, took standard views and then gave systemic hepa rin to assure ACT level above 250 and then the patient was loaded with Brilinta and aspirin and they took EBU3.5 guide into the aortic root over a J-wire, engaged the left main and took short Runthrough wire into the LAD, pre-dilated the both lesions before and after the stent that is already present t here and then we placed the 3.0 x 8 mm Synergy drug-eluting stent proximally to overlap with the mid LAD stent and placed 2.75 x 8 mm Synergy drug-eluting stent distally to overlap with the mid LAD sten t and post dilated the whole stent 3.0 and excellent results. We then took a Runthrough wire into th e diagonal branch. We pre-dilated the lesion and then placed 2.5 x 8 mm stent in the mid diagonal 1 branch at the area of stenosis with excellent results. Final angiogram was satisfactory after removi ng the wires and then removed the guide and the sheath and placed a 6-Ivorian Angio-Seal for closure w ith good hemostasis. Findings: 1.Left main; large and normal. 2.LAD proximally with luminal irregularities at the mid segment right before the stent and probably at the edge of stent is 99% stenosed, status post successful PCI as above and then the stent also has diffuse ISR 60% to 70% and distally it was about 80%, status post successful PCI as above. The rest of the LAD appears to be normal and diagonal 1 branch is large and has a stent in the mid segment wi th restenosis that is 90%, status post successful balloon angioplasty and stent placement as above. 3.Left circumflex is very small and with luminal irregularities. 4.RCA; large and dominant, approximately mid diffuse stent 20% and the luminal irregularities. 5.LVEDP is borderline elevated at 40 mmHg. Conclusion: 1.Severe LAD and diagonal 1 branch stenosis, status post successful PCI of both. 2.Moderate coronary artery disease elsewhere. Plan: Brilinta and aspirin and statin. She is likely resistant to Plavix. SR/MODL Voice ID: [id number] Report ID: [id number]
[2023-03-05] MEDS: ATORVASTATIN 40 MG TAB PO SCH (20:07)
[2023-03-05] MEDS: TICAGRELOR 90 MG TABLET PO SCH (20:07)
[2023-03-05] MEDS ORDERED: HYDROCODONE/APAP 7.5/325 MG TAB PO PRN (20:30)
[2023-03-06] MEDS: lisinopriL 10 MG TAB PO SCH ×2 (08:56→20:24)
[2023-03-06] MEDS: TICAGRELOR 90 MG TABLET PO SCH ×2 (08:56→20:24)
[2023-03-06] MEDS: ASPIRIN 81 MG CHEWABLE TABLET PO SCH (08:56)
--- NOTE | 2023-03-06 19:21 | PN ---
Date of Progress Note: 03/06/2023 Subjective: Seen by bedside. Doing clinically very well. No chest pain or shortness of breath. Sy mptoms have resolved. No nausea, vomiting, or diarrhea. All other systems were reviewed, they were negative. Objective: Vital signs: Reviewed. Head and Neck: Pupils are equal, reactive to light. Intact eye movements. No JVD. No cervical lym phadenopathy. Neck is supple. Thyroid is not enlarged. Lungs: Clear to auscultation bilaterally. No rhonchi, wheezing, or crackles. No accessory muscle u se. Heart: Regular rate and rhythm. No extra sounds. Abdomen: Soft, nontender. Bowel sounds positive. No organomegaly. No masses or hernia. No rigidi ty or rebound. Extremities: No edema, clubbing, or cyanosis. Intact pulses. Skin: No rash or nodule. Neurologic: Alert, awake, oriented x3. No acute focal deficits appreciated. Investigations: BUN 11, creatinine 0.78, and hemoglobin is 13.1. Assessment And Recommendations: 1.Uix-CL-cluvcpbco myocardial infarction. Culprit was mid LAD and mid diagonal branch, status post PCI on both. She is doing very well. Likely, she had a severe in-stent restenoses within few months due to Plavix resistance. Plavix was discontinued. My recommendation is to continue Brilinta 90 mg by mouth twice a day and baby aspirin 81 mg daily and I will see her postdischarge in 1 week and we will plan for possible coronary angiogram to be done in [address] to [address] From Cardiology standpoint, patient can be released and she will follow up with me next week. 2.Dyslipidemia. Continue with atorvastatin 40 mg q.h.s. 3.Hypertension. Blood pressure is controlled. SR/MODL Voice ID: [id number] Report ID: [id number]
--- NOTE | 2023-03-06 19:27 | PN ---
Date of Progress Note: 03/06/2023 The patient is a 1 day post cath, seems to be doing fine, stable. Plan is to repeat the cath next 24 to 48 hours. Depending on the results, proceed with treatment. HR/MODL Voice ID: [id number] Report ID: [id number]
[2023-03-06] MEDS: ATORVASTATIN 40 MG TAB PO SCH (20:24)
[2023-03-07 04:03] VITALS: O2SAT 96
[2023-03-07] MEDS: ASPIRIN 81 MG CHEWABLE TABLET PO SCH (09:15)
[2023-03-07] MEDS: lisinopriL 10 MG TAB PO SCH (09:15)
[2023-03-07] MEDS: TICAGRELOR 90 MG TABLET PO SCH (09:15)
[2023-03-07 12:00] VITALS: BP 111/62; TEMP 98.5
--- NOTE | 2023-03-07 12:05 | PN ---
Date of Progress Note: 03/07/2023 Subjective: Seen by bedside. Doing clinically well. No chest pain. No shortness of breath. No na usea, vomiting, or diarrhea. No abdominal pain. Completely asymptomatic. Objective: Vital Signs: Reviewed. Head and Neck: Pupils are equal, reactive to light. Intact eye movements. No JVD. No cervical lym phadenopathy. Neck is supple. Thyroid is not enlarged. Lungs: Clear to auscultation bilaterally. No rhonchi, wheezing, or crackles. No accessory muscle u se. Heart: Regular rate and rhythm. No extra sounds. Abdomen: Soft, nontender. Bowel sounds positive. No organomegaly. No masses or hernia. No rigidi ty or rebound. Extremities: No edema, clubbing, or cyanosis. Intact pulses. Skin: No rash or nodule. Neurologic: Alert, awake, oriented x3. No acute focal deficits appreciated. Investigation: Labs were reviewed. Assessment And Recommendations: 1.Jsq-BX-ilqvqqjyi myocardial infarction. LAD and diagonal 1 in-stent restenoses were the culprit, likely a Plavix resistance, status post PCI on both location. Excellent results. Continue aspirin a nd Brilinta and high-dose statin. The patient can be released from Cardiology standpoint and follow up with me in the office in 1 week. We will plan for a diagnostic coronary angiogram in 1 to 2 month s to make sure that there is no restenoses happening. 2.Dyslipidemia. Continue atorvastatin. SR/MODL Voice ID: [id number] Report ID: [id number]
--- NOTE | 2023-03-07 15:32 | PN ---
Date of Progress Note: 03/07/2023 Patient seems stable. Discussion with the agricultural agent felt that she could be discharged. Being aldo re of possible symptoms suggesting a recurrence, medication has been changed to Brilinta instead of P lavix. To be followed up by both Cardiology and myself in the next 2 weeks. Only other difference m edication carter is lisinopril if her blood pressure gets below 100, which happened after th e last procedure and go to 1 a day and when blood pressure is between 140 and 90, then go back to 2 a day. HR/MODL Voice ID: [id number] Report ID: [id number]
--- NOTE | 2023-03-11 17:22 | EKG ---
Test Date: 2023-03-04 Test Time: 13:46:35 Manager Information: ALP MEASUREMENT RESULTS: Intervals: Rate: 73 MI: 122 QRSD: 78 QT: 358 QTc: 394 [place]: P: 46 MI: 122 QRS: 50 T: 70 INTERPRETIVE STATEMENTS: Normal sinus rhythm with sinus arrhythmia Possible Left atrial enlargement Nonspecific T wave abnormality Abnormal ECG Compared to ECG 08/31/2022 13:44:08 T-wave abnormality now present Electronically Signed On 03-11-23 17:01:00 STEAM AND GAS TURBINES ASSEMBLER by Charlie Paz
== END 2023-03-07 14:22 | disposition home or self-care (01) | DRG 322 ==
LOC: ER 13:05 → ERHOLD 16:05 → 2ND 16:54
PROVIDERS: ADMIT Family Medicine; ATTEND Family Medicine
PROC: 027036Z Dilation of Coronary Artery, One Artery with Three Drug-eluting Intraluminal Devices, Percutaneous Approach (ICD-10-PCS; principal; 2023-03-05)
PROC: 4A023N7 Measurement of Cardiac Sampling and Pressure, Left Heart, Percutaneous Approach (ICD-10-PCS; 2023-03-05)
PROC: B2111ZZ Fluoroscopy of Multiple Coronary Arteries using Low Osmolar Contrast (ICD-10-PCS; 2023-03-05)
DX: I21.4 Non-ST elevation (NSTEMI) myocardial infarction (principal); I10 Essential (primary) hypertension; E78.5 Hyperlipidemia, unspecified; I25.10 Atherosclerotic heart disease of native coronary artery without angina pectoris; I25.2 Old myocardial infarction; Z95.5 Presence of coronary angioplasty implant and graft; Z88.8 Allergy status to other drugs, medicaments and biological substances; Z79.01 Long term (current) use of anticoagulants; Z79.02 Long term (current) use of antithrombotics/antiplatelets; Z79.899 Other long term (current) drug therapy
CPT/HCPCS: 36415; 71045; 76937; 80048; 80053; 80076; 81003; 83735; 83880; 84484; 85025; 85610; 85730; 92928; 92929; 93005; 93458; 99285; C1725; C1760; C1893; G0269; J1644; J2001; J2250; J2405; J3010; J7040

== ENCOUNTER 2023-03-10 14:51 | Inpatient (IN) | payer BC ==
--- OUTSIDE RECORDS SUMMARY | 2023-03-10 14:54 | XMS REPORT | Clinical Summary ---
Author Name Unknown Organization [facility] Address [address] [place] [address] Care Team Providers Care Assistant Real Estate Manager Name Role Phone Sarina Ariza MD Unavailable [phone] Physician, Outside Primary Care Provider Unavail able Social History Tobacco Use Types Packs/Day Years Used Date Smoking Tobacco: Never Assessed Sex and Gender Information Value Date Recorded Sex Assigned at Not on file Gender Identity Not on file Sexual Orientation Not on file Plan of Treatment Health Maintenance Due Date Last Done Comments COVID-19 Vaccination (#1) 05/29/1961 Care Teams Assistant Real Estate Manager Relationship Specialty Start Date End Date Sarina Ariza MD [address] [place] [id number] PCP - External Referring Obstetrics/Gynecology 09/22/18 Physician, [place] [address] PCP - General Oncology 01/08/19
[2023-03-10 15:58] LABS: Absolute Lymphocytes (CBC) 1.7 K/uL (0.7-4.9); Hematocrit 42.2 % (36.0-45.0); Lymphocytes % 27.2 % (15.3-44.8); MCV 88.8 fL (80-100); MPV 7.7 fL (7.6-11.3); Platelets 285 thou/uL (152-406); RBC Red Blood Cell Count 4.75 M/uL (3.86-4.86)
[2023-03-10 15:59] LABS: Protime INR 1.09
[2023-03-10 16:27] LABS: Bilirubin Direct 0.1 mg/dL (0-0.2); Bilirubin Indirect, Calculated 0.3 mg/dL (0.2-0.8); Bilirubin Total 0.4 mg/dL (0.2-1.0); Magnesium 2.1 mg/dL (1.6-2.4); Potassium 3.5 mEq/L (3.5-5.1); Protein, Total 8.8 g/dL (6.4-8.2)
[2023-03-10 16:46] LABS: Troponin High Sensitivity 273.7 pg/mL (<58.9)
--- NOTE | 2023-03-10 16:51 | EDPHYS ---
Physician Documentation [facility] Name: Darlene Tavera Age: 62 yrs Sex: Female : 1960 Arrival Date: 03/10/2023 Time: 14:51 Bed 6 Private MD: ED Physician Jeevan Ellis HPI: 03/10 15:42 This 62 yrs old Black Female presents to ER via Ambulatory with complaints of chest sb4 pain, sob. 15:58 patient states she started experiencing chest pain and shortness of breath day similar sb4 to her prior MIs. she had NSTEMI 6 months ago with placement of 2 stents and started on plavix. 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 called Dr. Paz today regarding her symptoms and he instructed her to come to ED. Historical: - Allergies: 15:17 metronidazole; ko1 - PMHx: 15:17 Colitis; Hypertension; Myocardial infarction; ko1 - PSHx: 15:17 heart stents x 2; ko1 - Immunization history:: Adult Immunizations up to date. - Social history:: Smoking status: Patient denies any tobacco usage or history of. ROS: 15:58 Constitutional: Negative for fever, chills, and weight loss, sb4 15:58 Cardiovascular: Positive for chest pain, 15:58 Respiratory: Positive for shortness of breath, 15:58 All other systems are negative, Exam: 15:58 Constitutional: This is a well developed, well nourished patient who is awake, alert, sb4 and in no acute distress. Head/Face: Normocephalic, atraumatic. Eyes: Extra-ocular motions intact. Periorbital areas with no swelling, redness, or edema. ENT: Mucous membranes moist. Cardiovascular: Regular rate and rhythm with a normal S1 and S2. Respiratory: Lungs have equal breath sounds bilaterally, clear to auscultation and percussion. No rales, rhonchi or wheezes noted. No increased work of breathing, no retractions or nasal flaring. Abdomen/GI: Soft, non-tender, no distension. Skin: Warm, dry with normal turgor. Normal color with no rashes, no lesions, and no evidence of cellulitis. MS/ Extremity: Pulses equal, no cyanosis. Neurovascular intact. Full, normal range of motion. Neuro: Awake and alert, GCS 15, oriented to person, place, time, and situation. Motor strength 5/5 in all extremities. Sensory grossly intact. Vital Signs: 15:15 BP 143 / 88; Pulse 89; Resp 16; Temp 98.8; Pulse Ox 99% ; Weight 74.84 kg; Height 5 ft. ko1 1 in. ; 16:20 BP 120 / 77; Pulse 77; Resp 16 S; Pulse Ox 100% on R/A; aa5 19:31 BP 135 / 84; Pulse 91; Resp 16; Pulse Ox 100% on R/A; jb4 15:15 Body Mass Index 31.18 (74.84 kg, 154.94 cm) ko1 MDM: 15:23 Patient medically screened. sb4 16:02 Differential diagnosis: ACS, angina. sb4 16:49 Data reviewed: vital signs, nurses notes, lab test result(s), EKG, radiologic studies, sb4 and as a result, I will admit patient. Consideration of Admission/Observation Patient was admitted/placed on observation. Management of patient was discussed with the following: Hospitalist: Charli ZAMBRANO. Receiver Dispatcher: Dr. Paz, wants to do cardiac cath tomorrow. Care significantly affected by the following chronic conditions: Hypertension, CAD. Counseling: I had a detailed discussion with the patient and/or guardian regarding the historical points, exam findings, and any diagnostic results supporting the discharge/admit diagnosis, lab results, radiology results, the need for further work-up and treatment in the hospital. 03/10 15:30 Order name: Basic Metabolic Panel; Complete Time: 16:47 sb4 03/10 15:30 Order name: CBC with Diff; Complete Time: 16:05 sb4 03/10 15:30 Order name: LFT's; Complete Time: 16:47 sb4 03/10 15:30 Order name: Magnesium; Complete Time: 16:47 sb4 03/10 15:30 Order name: NT PRO-BNP; Complete Time: 16:47 sb4 03/10 15:30 Order name: PT-INR; Complete Time: 16:05 sb4 03/10 15:30 Order name: Troponin HS; Complete Time: 16:47 sb4 03/10 17:39 Order name: T4 Free EDMS 03/10 17:39 Order name: Thyroid Stimulating Hormone EDMS 03/10 17:39 Order name: Urinalysis w/ reflexes EDMS 03/10 17:39 Order name: CBC with Automated Diff EDMS 03/10 17:39 Order name: CBC with Automated Diff EDMS 03/10 17:39 Order name: CBC with Automated Diff EDMS 03/10 17:39 Order name: CBC with Automated Diff EDMS 03/10 17:39 Order name: Comprehensive Metabolic Panel EDMS 03/10 17:39 Order name: Comprehensive Metabolic Panel EDMS 03/10 17:39 Order name: Comprehensive Metabolic Panel EDMS 03/10 17:39 Order name: Comprehensive Metabolic Panel EDMS 03/10 17:39 Order name: Lipid Profile EDMS 03/10 17:39 Order name: Lipid Profile EDMS 03/10 17:39 Order name: Magnesium EDMS 03/10 17:39 Order name: Magnesium EDMS 03/10 17:39 Order name: Magnesium EDMS 03/10 17:39 Order name: Magnesium EDMS 03/10 17:39 Order name: Phosphorus EDMS 03/10 17:39 Order name: Phosphorus EDMS 03/10 17:39 Order name: Phosphorus EDMS 03/10 17:39 Order name: Phosphorus EDMS 03/10 18:53 Order name: PTT, Activated Partial Thromb EDMS 03/10 18:53 Order name: D-Dimer EDMS 03/10 15:30 Order name: XRAY Chest (1 view); Complete Time: 17:20 sb4 03/10 15:30 Order name: EKG; Complete Time: 15:31 sb4 03/10 17:38 Order name: CONS Physician Consult EDMS 03/10 17:57 Order name: EKG Electrocardiogram EDMS 03/10 17:57 Order name: EKG Electrocardiogram EDMS 03/10 15:30 Order name: Cardiac monitoring; Complete Time: 15:31 sb4 03/10 15:30 Order name: EKG - Nurse/Tech; Complete Time: 15:31 sb4 03/10 15:30 Order name: IV Saline Lock; Complete Time: 15:48 sb4 03/10 15:30 Order name: Labs collected and sent; Complete Time: 15:48 sb4 03/10 15:30 Order name: O2 Per Protocol; Complete Time: 15:31 sb4 03/10 15:30 Order name: O2 Sat Monitoring; Complete Time: 15:31 sb4 EC:58 Rate is 81 beats/min. Rhythm is regular, Normal Sinus Rhythm. OR interval is normal at sb4 116 msec. QRS interval is normal at 80 msec. QT interval is normal. No ST changes noted. Clinical impression: No evidence of ischemia. Interpreted by me. Reviewed by me. Administered Medications: No medications were administered Disposition Summary: 03/10/23 16:50 Hospitalization Ordered Notes: Hospitalization Status: Inpatient Admission sb4 Provider: Adriane Blanca sb4 Location: Telemetry/MedSurg (Inpatient) sb4 Condition: Fair sb4 Problem: new sb4 Symptoms: are unchanged sb4 Bed/Room Type: Standard sb4 Room Assignment: 405(03/10/23 17:32) eb Diagnosis - Subsequent non-ST elevation (NSTEMI) myocardial infarction sb4 Forms: - Medication Reconciliation Form sb4 - SBAR form sb4 - Leadership Thank You Letter sb4 Addendum: 03/13/2023 09:00 Co-signature as Attending Physician, Jeevan Ellis MD I reviewed the patient's care r n provided by the Advanced Practice Provider and agree with the diagnosis and treatment plan. Signatures: Dispatcher [employer] EDJeevan Santos MD MD rn Botello, Elizabeth eb Oliver, Kathy, RN RN Katiana Sanchez PA-C PA-C sb4 Corrections: (The following items were deleted from the chart) 03/10 17:32 16:50 sb4 eb
--- NOTE | 2023-03-10 16:51 | ER ---
Nurse's Notes [facility] Name: Darlene Tavera Age: 62 yrs Sex: Female : 1960 Arrival Date: 03/10/2023 Time: 14:51 Bed 6 Private MD: Diagnosis: Subsequent non-ST elevation (NSTEMI) myocardial infarction Presentation: 03/10 15:15 Chief complaint: Patient states: had heart cath in and had stents placed then ko1 here this past Saturday and got out for the same arteries clogged.. Started on new blood thinner, Brilenta and now is having shortness of breath and some chest tightness. Coronavirus screen: At this time, the client does not indicate any symptoms associated with coronavirus-19. Ebola Screen: No symptoms or risks identified at this time. Initial Sepsis Screen: Does the patient meet any 2 criteria? No. Patient's initial sepsis screen is negative. Does the patient have a suspected source of infection? No. Patient's initial sepsis screen is negative. Risk Assessment: Do you want to hurt yourself or someone else? Patient reports no desire to harm self or others. Onset of symptoms was March 10, 2023. 15:15 Method Of Arrival: Ambulatory ko1 15:15 Acuity: MIMI 3 ko1 Triage Assessment: 15:17 General: Appears in no apparent distress. comfortable, Behavior is calm, cooperative, ko1 appropriate for age. Pain: Denies pain. Historical: - Allergies: 15:17 metronidazole; ko1 - PMHx: 15:17 Colitis; Hypertension; Myocardial infarction; ko1 - PSHx: 15:17 heart stents x 2; ko1 - Immunization history:: Adult Immunizations up to date. - Social history:: Smoking status: Patient denies any tobacco usage or history of. Screenin:30 [facility] ED Fall Risk Assessment (Adult) History of falling in the last 3 months, aa5 including since admission No falls in past 3 months (0 pts) Confusion or Disorientation No (0 pts) Intoxicated or Sedated No (0 pts) Impaired Gait No (0 pts) Mobility Assist Device Used No (0 pt) Altered Elimination No (0 pt) Score/Fall Risk Level 0 - 2 = Low Risk Oriented to surroundings, Maintained a safe environment, Educated pt \T\ family on fall prevention, incl call for assistance when getting out of bed. Abuse screen: Denies threats or abuse. Nutritional screening: No deficits noted. Tuberculosis screening: No symptoms or risk factors identified. Assessment: 15:30 General: Appears comfortable, Behavior is calm, cooperative. Pain: Complains of pain in aa5 chest Pain currently is 0 out of 10 on a pain scale. Quality of pain is described as pressure, Pain began 2-3 days ago. Is intermittent. Neuro: Level of Consciousness is awake, alert, obeys commands, Oriented to person, place, time, situation. Cardiovascular: Heart tones S1 S2 present Rhythm is regular. Respiratory: Reports shortness of breath on exertion since 3 days ago Airway is patent Respiratory effort is even, unlabored, Respiratory pattern is regular, symmetrical. GI: Abdomen is round non-distended, Bowel sounds present X 4 quads. Abd is soft and non tender X 4 quads. Reports indigestion, Patient currently denies vomiting. : No signs and/or symptoms were reported regarding the genitourinary system. EENT: No signs and/or symptoms were reported regarding the EENT system. Derm: Skin is dry, Skin is normal, Skin temperature is warm. Musculoskeletal: Range of motion: intact in all extremities. 16:51 Reassessment: Patient appears in no apparent distress at this time. Patient and/or iw family updated on plan of care and expected duration. Pain level reassessed. Patient is alert, oriented x 3, equal unlabored respirations, skin warm/dry/pink. hospitalist at bedside. 18:03 Reassessment: Patient appears in no apparent distress at this time. attempt to call iw report, no answer. 19:31 Reassessment: Patient appears in no apparent distress at this time. Patient and/or jb4 family updated on plan of care and expected duration. Pain level reassessed. Patient is alert, oriented x 3, equal unlabored respirations, skin warm/dry/pink. Vital Signs: 15:15 BP 143 / 88; Pulse 89; Resp 16; Temp 98.8; Pulse Ox 99% ; Weight 74.84 kg; Height 5 ft. ko1 1 in. ; 16:20 BP 120 / 77; Pulse 77; Resp 16 S; Pulse Ox 100% on R/A; aa5 19:31 BP 135 / 84; Pulse 91; Resp 16; Pulse Ox 100% on R/A; jb4 15:15 Body Mass Index 31.18 (74.84 kg, 154.94 cm) ko1 ED Course: 14:55 Patient arrived in ED. mg5 15:03 Katiana Young PA-C is PHCP. sb4 15:03 Jeevan Ellis MD is Attending Physician. sb4 15:17 Triage completed. ko1 15:17 Arm band placed on right wrist. Patient placed in an exam room, on a stretcher, on ko1 professional shopper, on pulse oximetry, Patient notified of wait time. 15:23 Daysi Agosto, RN is Primary Nurse. aa5 15:30 Patient has correct armband on for positive identification. Placed in gown. Bed in low aa5 position. Call light in reach. Side rails up X2. Client placed on continuous cardiac and pulse oximetry monitoring. NIBP monitoring applied. 15:40 Initial lab(s) drawn, by ED staff, sent to lab. Inserted saline lock: 22 gauge in right aa5 forearm, using aseptic technique. Blood collected. Inserted by SHIRLEY Alexander. 16:38 XRAY Chest (1 view) In Process Unspecified. EDMS 16:50 Adriane Blanca MD is Hospitalizing Provider. sb4 19:36 No provider procedures requiring assistance completed. Patient admitted, IV remains in jb4 place. 19:46 Provided Education on: need for admit. jw7 Administered Medications: No medications were administered Medication: 15:30 VIS not applicable for this client. aa5 Outcome: 16:50 Decision to Hospitalize by Provider. sb4 19:35 Admitted to Tele accompanied by nurse, via wheelchair, room 405, with chart, Report jb4 called to JF Newton 19:35 Condition: stable 19:35 Discharge instructions given to patient, Instructed on the need for admit, Demonstrated understanding of instructions, 19:47 Patient left the ED. jw7 Signatures: Dispatcher [employer] EDWV Bhumika Champion RN RN iw Daysi Agosto, RN RN aa5 Home López RN RN jb4 Cecilia Vasquez RN RN jw7 Maya Osei RN RN ko1 Katiana Young PA-C PA-C sb4 Robyn Kirkland mg5
--- NOTE | 2023-03-10 17:20 | RAD REPORT ---
EXAM DESCRIPTION: RAD - Chest Single View - 03/10/2023 4:36 pm CLINICAL HISTORY: CHEST PAIN COMPARISON: Chest Single View dated 03/04/2023; Chest Single View dated 07/30/2022; Chest Pa And Lat ( 2 Views) dated 01/24/2022; Chest Pa And Lat (2 Views) dated 07/29/2017 FINDINGS: Lines: None. Lungs: No evidence of edema or pneumonia. Pleural: No significant pleural effusions or pneumothorax. Cardiac: The heart size is within normal limits. Mediastinum: Within normal limits. Bones: No acute fractures. Other: None IMPRESSION: No acute cardiopulmonary disease.
[2023-03-10] MEDS ORDERED: ALBUTEROL 2.5 MG/3 ML NEB SOL NEB PRN ×2 (17:34→20:17)
--- NOTE | 2023-03-10 17:41 | P.HP ---
Certification for Inpatient Patient admitted to: Inpatient With expected LOS: <2 Midnights Patient will require the following post-hospital care: None Practitioner: I am a practitioner with admitting privileges, knowledge of patient current condition, hospital course, and medical plan of care. Services: Services provided to patient in accordance with Admission requirements found in Title 42 Section 412.3 of the Code of Federal Regulations <Charli Jorge - Last Filed: 03/10/23 17:48> Patient History Date of Service: 03/10/23 Reason for admission: Chest pain History of Present Illness: Ms. Tavera 62-year-old female patient with a history of hypertension, CAD, presented to emergency room via ambulatory with complaints of chest pain, shortness of breath. Patient report that her pain is like pressure in her chest, and shortness of breath at times. No aggravating or relieving factors. Her chest discomfort rates 5 out of 10. Patient reports that she has been experiencing chest pain and shortness of breath last 2 days.. Patient had NSTEMI 6 months ago and with placement of 2 stents and started on Plavix. 1 week ago she had a subsequent ME with with the same arteries, presumed to have Plavix resistance, and was released tended and started on Brilinta by Dr. Horner her car lot attendant. Patient called the car lot attendant today regarding her symptoms and she was advised to come to the emergency room today for possible cardiac heart catheterization tomorrow. ED course vital signs blood pressure 143/88, pulse 89, respirations 16, temperature 98.8, pulse ox 99%, weight 74.84 kg, height 5.1. Laboratory evaluation, CBC is reassuring, metabolic panel with elevated AST 41, ALT 66. Elevated troponin I273.7. Normal chest x-ray findings. Admitting the patient with a diagnosis of NSTEMI, and hypertension. - Past Medical/Surgical History Has patient received pneumonia vaccine in the past: Yes Diabetic: No -: HTN -: Ulcerative Colitis -: CAD - Social History Smoking Status: Never smoker Alcohol use: Yes CD- Drugs: No Caffeine use: Yes <Charli Jorge - Last Filed: 03/10/23 17:48> Date of Service: 03/11/23 - Family History Father Notes: no known medical condition Mother -: Heart disease, Hypertension <Adriane Blanca - Last Filed: 03/11/23 07:28> Allergies No Known Allergies Allergy (Unverified 08/31/22 13:45) Home Medications: Mesalamine [Lialda] 4.8 gm PO DAILY 06/29/11 Aspirin Chewable [Aspirin Chewable*] 81 mg PO DAILY #30 tab.chew 07/31/22 Atorvastatin Calcium [Lipitor] 40 mg PO BEDTIME #30 tab 07/31/22 lisinopriL [Prinivil] 10 mg PO BID 03/04/23 Ticagrelor [Brilinta*] 90 mg PO DAILY 03/11/23 Review of Systems 10-point ROS is otherwise unremarkable <Charli Jorge - Last Filed: 03/10/23 17:48> Physical Examination - Physical Exam General: Alert, Oriented x3 HEENT: Atraumatic, Normocephalic Neck: Supple, 2+ carotid pulse no bruit Respiratory: Clear to auscultation bilaterally, Normal air movement Cardiovascular: No edema, Normal pulses Capillary refill: <2 Seconds Gastrointestinal: Normal bowel sounds, Soft and benign, Non-distended Musculoskeletal: No clubbing, No contractures Neurological: Normal gait, Normal speech, Normal tone, Normal affect - Studies Laboratory Data (last 24 hrs) 03/10/23 03/10/23 03/10/23 15:45 15:45 15:45 WBC 6.10 Hgb 13.9 Hct 42.2 Plt Count 285 PT 12.0 INR 1.09 Sodium 139 Potassium 3.5 BUN 14 Creatinine 0.98 Glucose 98 Magnesium 2.1 Total Bilirubin 0.4 AST 41 H ALT 66 H Alkaline Phosphatase 116 <Charli Jorge - Last Filed: 03/10/23 17:48> - Studies Laboratory Data (last 24 hrs) 03/10/23 03/10/23 03/10/23 15:45 15:45 15:45 WBC 6.10 Hgb 13.9 Hct 42.2 Plt Count 285 PT 12.0 INR 1.09 Sodium 139 Potassium 3.5 BUN 14 Creatinine 0.98 Glucose 98 Magnesium 2.1 Total Bilirubin 0.4 AST 41 H ALT 66 H Alkaline Phosphatase 116 <Adriane Blanca - Last Filed: 03/11/23 07:28> Assessment and Plan - Problems (Diagnosis) (1) Chest pain Current Visit: No Status: Acute (2) Coronary artery disease Current Visit: No Status: Acute Qualifiers: Coronary Disease-Associated Artery/Lesion type: jena artery [place] vs. transplanted heart: jena heart Associated angina: with unstable angina Qualified Code(s): I25.110 - Atherosclerotic heart disease of jena coronary artery with unstable angina pectoris (3) Essential hypertension Current Visit: No Status: Acute (4) NSTEMI (non-ST elevated myocardial infarction) Current Visit: No Status: Acute (5) Crohn's disease Current Visit: Yes Status: Acute (6) Hyperlipidemia Current Visit: Yes Status: Acute - Plan Chest Pain, NSTEMI CAD Hypertension Chron's disease Hyperlipidemia concern for Acute Coronary Syndrome (Non-ST Segment Elevation Myocardial Infarction) Based on history and physical examination, cannot exclude ischemia as a possible etiology of chest pain.. - Evaluation thus far: - EKG: No obvious ST segment changes, trend - Serial troponin initial troponin 273.7 trend - Ordered transthoracic echocardiogram - Ordered chest x-ray -normal - Ordered d-dimer - Management plan: - Consult Cardiology - recommendations appreciated - S/P aspirin 324 mg PO x 1 in ED - Start daily baby aspirin - Symptom control with PRN acetaminophen, nitroglycerin, morphine - reconcile and resume home medication CODE STATUSfull code Diet n.p.o. DVT prophylaxisLovenox Discharge Plan: Home Plan to discharge in: 48 Hours - Advance Directives Does patient have a Living Will: No Does patient have a Durable POA for Healthcare: No - Code Status/Comfort Care Code Status Assessed: Yes (full code) Code Status: Full Code Physician Review: Patient Assessed, Agree with Above Assessment and Plan Critical Care: No Time Spent Managing Pts Care (In Minutes): 55 (minutes) <Charli Jorge - Last Filed: 03/10/23 17:48> - Plan Pt seen and examined. I agree with note by the TANNERY WORKER. Pt is a 62 yo female with past medical history of Htn, HLD, CAD and Crohn's disease who presents with SOB and chest discomfort. Of note pt was discharged from the hospital last saturday after She had cardiac cath. Pt had NSTEMI 6 months ago and cardiology placed 2 stents and started plavix. Last week pt had NSTEMI due to the same coronary artery and cardiology restented it and started pt on brillinta. At home, pt continued to have chest discomfort, SOB with minimal exertion, heart burn and feeling around her jaw. She called Dr. Pierce who advised her to come to the Er for possible cath tomorrow. Lab studies show WBC 6.1, Hgb 13.9. K 3.5, Cr 0.98, troponin 273, BNP 192. At bedside, pt is in NAD. She is in NAD. ROS is significant for SOB with exertion. A/P: NSTEMI: Troponin 273. Will trend troponin Q6h. Continue therapeutic lovenox subq BID, keep NPO after midnight for Cardiac cath. Htn: lisinopril HLD: atorvastatin Hx of Crohn's disease: Continue home med Hx of CAD: Continue home meds. Will hold brillinta. Continue heparin drip. DVT ppx: lovenox Code: full Dr. Donis will take over her care on 03/11/23 <Adriane Blanca - Last Filed: 03/11/23 07:28>
[2023-03-10] MEDS ORDERED: MORPHINE 4 MG/ML SYR IV PRN ×2 (17:54→20:17)
[2023-03-10] MEDS ORDERED: HEPARIN/D5W 25,000 UNIT/500 ML BAG IV SCH (18:00)
[2023-03-10 18:10] LABS: Thyroid Stimulating Hormone 1.91 uIU/mL (0.358-3.740)
[2023-03-10] MEDS ORDERED: SODIUM CHLORIDE 0.9% 10ML INJ IV PRN (18:16)
[2023-03-10] MEDS ORDERED: MORPHINE 2 MG/ML SYR IV PRN (18:22)
[2023-03-10] MEDS ORDERED: HEPARIN/D5W 25,000 UNIT/500 ML BAG IV ONE (18:41)
[2023-03-10] MEDS ORDERED: HEPARIN 5000 UNIT/ML 1 ML VIAL ONE (18:41)
[2023-03-10] MEDS ORDERED: NITROGLYCERIN 0.4 MG/TAB SL PRN (20:17)
[2023-03-10] MEDS ORDERED: ASPIRIN 325 MG TAB PO ONE (20:17)
[2023-03-10 20:22] VITALS: BMI 30.6
[2023-03-10] MEDS: ENOXAPARIN 80 MG/0.8 ML SQ SCH (21:00)
[2023-03-10] MEDS ORDERED: ATORVASTATIN 40 MG TAB PO SCH (21:00)
[2023-03-10 21:43] LABS: Thyroid Stimulating Hormone 1.84 uIU/mL (0.358-3.740)
[2023-03-10 21:58] LABS: Troponin High Sensitivity 220.9 pg/mL (<58.9)
[2023-03-10] MEDS: lisinopriL 10 MG TAB PO SCH (22:22)
[2023-03-10] MEDS: METOPROLOL TAR 50 MG TAB PO SCH (22:23)
[2023-03-10 23:52] LABS: Specific Gravity 1.014 (1.005-1.030); Urine Bilirubin NEGATIVE (Negative); Urine Blood Negative (Negative); Urine Clarity Clear (Clear); Urine Color Light-Yellow (Yellow); Urine Glucose NEGATIVE (Negative); Urine Protein NEGATIVE (Negative); Urine Urobilinogen Normal (Normal)
[2023-03-11 04:20] LABS: Absolute Lymphocytes (CBC) 2.1 K/uL (0.7-4.9); Hematocrit 38.1 % (36.0-45.0); Lymphocytes % 39.7 % (15.3-44.8); MCV 89.4 fL (80-100); MPV 7.4 fL (7.6-11.3); Platelets 260 thou/uL (152-406); RBC Red Blood Cell Count 4.26 M/uL (3.86-4.86)
[2023-03-11 04:36] LABS: Albumin 3.4 g/dL (3.4-5.0); Bilirubin Total 0.5 mg/dL (0.2-1.0); Magnesium 2.1 mg/dL (1.6-2.4); Phosphorus 3.7 mg/dL (2.5-4.9); Potassium 3.7 mEq/L (3.5-5.1); Protein, Total 7.6 g/dL (6.4-8.2)
[2023-03-11] MEDS ORDERED: Mesalamine [Lialda] 1.2 GM Tablet.Dr PO SCH (09:00)
[2023-03-11] MEDS ORDERED: ASPIRIN 81 MG CHEWABLE TABLET PO SCH (09:00)
[2023-03-11] MEDS ORDERED: ASPIRIN EC 81 MG TAB PO SCH ×2 (09:00)
[2023-03-11] MEDS: ENOXAPARIN 80 MG/0.8 ML SQ SCH (09:00)
[2023-03-11] MEDS: METOPROLOL TAR 50 MG TAB PO SCH (09:00)
[2023-03-11] MEDS: lisinopriL 10 MG TAB PO SCH (09:00)
[2023-03-11] MEDS ORDERED: PANTOPRAZOLE 40 MG INJ IVP SCH (09:00)
[2023-03-11] MEDS ORDERED: HEPA 1000U/500MLS 2,000 UNIT/1,000 ML BAG IV ONE (10:33)
[2023-03-11] MEDS ORDERED: FENTANYL CITR 100 MCG/2 ML ONE (10:34)
[2023-03-11] MEDS ORDERED: ATROPINE SULF 1 MG/10 ML SYR IV ONE (10:34)
[2023-03-11] MEDS ORDERED: MIDAZOLAM HCL 2 MG/2 ML INJ ONE (10:34)
[2023-03-11] MEDS ORDERED: LIDOCAINE 1% 20 ML MDV ONE (10:34)
[2023-03-11] MEDS ORDERED: NA CHLORIDE 0.9% 500 ML ONE (10:35)
[2023-03-11] MEDS ORDERED: TICAGRELOR 90 MG TABLET PO ONE (10:35)
[2023-03-11] MEDS ORDERED: CLOPIDOGREL 75 MG TABLET ONE (10:35)
[2023-03-11] MEDS ORDERED: HEPARIN 10,000 UNIT/10 ML VIAL IV ONE (10:36)
[2023-03-11] MEDS ORDERED: ASPIRIN 325 MG TAB ONE (10:36)
--- NOTE | 2023-03-11 12:51 | CON ---
Date of Consultation: 03/11/2023 Reason For Consultation: Chest pain and known coronary artery disease. History Of Present Illness: This is a 62-year-old female, known to have history of coronary artery d isease, status post recent PCI of the mid LAD and diagonal branch. She apparently had presented with non-STEMI about 6 months ago and she had a stent to the LAD and the diagonal branch and she was sent home on Plavix and aspirin and about a week ago, she was having significant shortness of breath on e xertion along with chest tightness and indigestion symptoms and found to have a 99% in-stent restenos es in both stents. This was re-stented to both locations and she was started on Brilinta and sent ho nd. She started having indigestion symptoms again, chest discomfort with dyspnea on exertion. Julia rust is across the chest close to the shoulder, so she presented to the emergency room. At the pres ent time, she feels well. No shortness of breath or chest pain. Past Medical History: Coronary artery disease, hypertension, dyslipidemia. Medications: Refer to reconciliation sheet for detailed list. Allergies: NO KNOWN DRUG ALLERGIES. Family History: No premature coronary artery disease or cancer. Social History: She does not smoke or drink. Does not use any drugs. Review of Systems: All systems reviewed and they were negative except as mentioned in the HPI. Physical Examination: Vital Signs: Reviewed. Head and Neck: Pupils are equal, reactive to light. Intact eye movements. No JVD. No cervical lym phadenopathy. Neck is supple. Thyroid is not enlarged. Lungs: Clear to auscultation bilaterally. No rhonchi, wheezing, or crackles. No accessory muscle u se. Heart: Regular rate and rhythm. No extra sounds. Abdomen: Soft, nontender. Bowel sounds positive. No organomegaly. No masses or hernia. No rigidi ty or rebound. Extremities: No edema, clubbing, or cyanosis. Intact pulses. Skin: No rash or nodule. Neurologic: Alert, awake, oriented x3. No acute focal deficits appreciated. Investigations: Labs were reviewed. Assessment And Recommendations: 1.Chest pain, and patient had in-stent restenoses recently after 6 months. Plan at the L AD and diagonal 1 branch. Symptoms are concerning. Keep her NPO and we will plan for coronary angio gram. If there are restenoses happening in the stents, then we will plan for a coronary artery bypas s surgery, but if the stents are patent, we will continue Brilinta and aspirin. 2.Dyslipidemia. Continue Lipitor 40 mg q.h.s. 3.Hypertension. Blood pressure is controlled. Continue current therapy. SR/TERELL Voice ID: [id number] Report ID: [id number]
[2023-03-11 12:58] VITALS: BP 115/63; TEMP 97.8; O2SAT 100
--- NOTE | 2023-03-11 13:21 | OP ---
Date of Procedure: 03/11/2023 Surgeon: CURT BETTS Procedures Performed: 1.Selective coronary angiogram. 2.Left heart catheterization. Indication: [id number] myocardial infarction/unstable angina. Access: Left femoral artery 6-Croatian closed with StarClose. Complications: None. Bleeding: Less than 20 mL. Anesthesia: Total sedation time was 30 minutes. Description Of Procedure: After risks, benefits, and alternatives explained, the patient agreed to p rocedure and signed informed consent. The patient was brought into cardiac catheterization laborator y, prepped and draped in the usual sterile fashion. Then, we accessed left femoral artery using micr opuncture kit, ultrasound guidance, and fluoroscopy with 6-Croatian [place] sheath and took 6-Croatian J L4 catheter into the aortic root over a J-wire, engaged left main, took standard views and exchanged for 6-Croatian JR4 catheter, engaged the RCA, took standard views. The JR4 catheter was pushed over th e wire into the LV, measured the LVEDP. Pullback did not record any gradient. Then, I removed the c atheter and the sheath. StarClose was used for closure with good hemostasis. Findings: 1.Left main; large and normal. 2.LAD; proximal segment is normal. Mid LAD stent is widely patent. No disease. Rest of the LAD is normal. Diagonal 1 branch; proximal stent is widely patent. No stenosis. 3.Left circumflex; small, nondominant. 4.RCA; it is a dominant circulation with luminal regularities. 5.Elevated LVEDP at 60 mmHg. Conclusion: 1.Widely patent LAD and diagonal 1 stents and no significant coronary artery disease elsewhere. 2.Elevated LVEDP. Recommendation: Continue aspirin and Brilinta and statin and low dose diuretics is recommended. SR/MODL Voice ID: [id number] Report ID: [id number]
--- NOTE | 2023-03-11 16:51 | EKG ---
Test Date: 2023-03-11 Test Time: 09:58:15 Professor Of Pathology: JT MEASUREMENT RESULTS: Intervals: Rate: 62 DE: 116 QRSD: 76 QT: 380 QTc: 385 [place]: P: 67 DE: 116 QRS: 103 T: 47 INTERPRETIVE STATEMENTS: Normal sinus rhythm Rightward axis Nonspecific T wave abnormality Abnormal ECG Compared to ECG 03/10/2023 15:31:28 Right-axis deviation now present T-wave abnormality still present Electronically Signed On 03-11-23 16:50:30 IMPORT EXPORT MANAGER by Charlie Paz
--- NOTE | 2023-03-11 16:52 | EKG ---
Test Date: 2023-03-10 Test Time: 15:31:28 Centerless Grinder Set Up Operator: JEFFERSON MEASUREMENT RESULTS: Intervals: Rate: 81 WI: 116 QRSD: 80 QT: 344 QTc: 399 [place]: P: 43 WI: 116 QRS: 21 T: 21 INTERPRETIVE STATEMENTS: Normal sinus rhythm Nonspecific T wave abnormality Abnormal ECG Compared to ECG 03/04/2023 13:46:35 Sinus arrhythmia no longer present T-wave abnormality still present Electronically Signed On 03-11-23 16:51:19 PHOTOENGRAVING PROOFER APPRENTICE by Charlie Paz
[2023-03-11] MEDS ORDERED: TICAGRELOR 90 MG TABLET PO SCH (21:00)
--- NOTE | 2023-03-12 07:20 | ECHO ---
HEIGHT: 5 ft 1 in WEIGHT: 162 lb 0 oz DATE OF STUDY: 03/11/[address]: Charli Jorge NP 2-DIMENSIONAL: YES M.MODE: YES DOPPLER: YES COLOR FLOW: YES TDS: PORTABLE: YES DEFINITY: BUBBLE STUDY: DIAGNOSIS: NON ST ELEVATION MYOCARDIAL INFARCTION CARDIAC HISTORY: CATHERIZATION: YES SURGERY: NO PROSTHETIC VALVE: NO PACEMAKER: NO MEASUREMENTS (cm) DIASTOLIC (NORMALS) SYSTOLIC (NORMALS) IVSd 1.1 (0.6-1.2) LA Diam 2.0 (1.9-4.0) LVEF 57% LVIDd 4.4 (3.5-5.7) LVIDs 3.1 (2.0-3.5) %FS 30% LVPWd 1.2 (0.6-1.2) Ao Diam 2.1 (2.0-3.7) 2 DIMENSIONAL ASSESSMENT: RIGHT ATRIUM: NORMAL LEFT ATRIUM: NORMAL RIGHT VENTRICLE: NORMAL LEFT VENTRICLE: NORMAL TRICUSPID VALVE: MILD TRICUSPID REGURGITATION MITRAL VALVE: MILD MITRAL REGURGITATION PULMONIC VALVE: MILD PULMONIC INSUFFICIENCY AORTIC VALVE: NORMAL PERICARDIAL EFFUSION: NONE AORTIC ROOT: NORMAL LEFT VENTRICULAR WALL MOTION: NORMAL DOPPLER/COLOR FLOW: SEE BELOW COMMENTS: 1. NORMAL LEFT VENTRICULAR EJECTION FRACTION 55-60% 2. NORMAL WALL MOTION 3. MILD MITRAL REGURGITATION, TRICUSPID REGURGITATION, PULMONIC INSUFFICIENCY 4. GRADE DIASTOLIC DYSFUNCTION TECHNOLOGIST: WAN VICTORIA
--- NOTE | 2023-03-12 21:24 | DS ---
Date of Discharge: 03/11/2023 The patient was admitted to the hospital after presenting to the emergency room with chest pain. She had recently had a stent replacement, which was actually re-stenting. Postoperatively, she did quit e well. She was observed for 48 hours and was basically asymptomatic. She went home, stated within a day or so she started having the same kind of chest pain, which precipitated her presence in the [facility] room initially; however, there was no associated significant shortness of breath. She was adm itted, evaluated, and still had slight elevation of her troponin, probably secondary to her catheteri zation. In any event, she underwent re-catheterization, which showed open stents. She was basically asymptomatic during her hospital stay. Seen by Dr. Paz and felt she could be discharged, continu e on her home medications, to follow up within 3 months for probable in 1 week. Final Diagnoses: Chest pain, atypical. Post cardiac catheterization for coronary artery disease. P ost stent procedure. Hypertension, controlled. HR/MODL Voice ID: [id number] Report ID: [id number]
== END 2023-03-11 16:04 | disposition home or self-care (01) | DRG 281 ==
LOC: ER 14:51 → 4TH 18:17
PROVIDERS: ADMIT Hospitalist; ATTEND Family Medicine
PROC: 4A023N7 Measurement of Cardiac Sampling and Pressure, Left Heart, Percutaneous Approach (ICD-10-PCS; principal; 2023-03-11)
PROC: B2111ZZ Fluoroscopy of Multiple Coronary Arteries using Low Osmolar Contrast (ICD-10-PCS; 2023-03-11)
DX: I21.4 Non-ST elevation (NSTEMI) myocardial infarction (principal); K50.90 Crohn's disease, unspecified, without complications; I10 Essential (primary) hypertension; E78.5 Hyperlipidemia, unspecified; I25.110 Atherosclerotic heart disease of native coronary artery with unstable angina pectoris; I25.2 Old myocardial infarction; Z95.5 Presence of coronary angioplasty implant and graft; Z88.8 Allergy status to other drugs, medicaments and biological substances; Z79.82 Long term (current) use of aspirin; Z79.899 Other long term (current) drug therapy
CPT/HCPCS: 36415; 71045; 76937; 80048; 80053; 80061; 80076; 81003; 83735; 83880; 84100; 84439; 84443; 84484; 85025; 85379; 85610; 85730; 93005; 93306; 93458; 99152; 99285; C1893; J0461; J1644; J2001; J2250; J3010; J7040; Q9966

== ENCOUNTER 2023-06-09 18:26 | Emergency (ER) | payer BC ==
--- OUTSIDE RECORDS SUMMARY | 2023-06-09 18:29 | XMS REPORT | Clinical Summary ---
Author Name Unknown Organization [facility] [place] Address [address] [place] [address] Care Team Providers Care Maritime Pilot Name Role Phone Sarina Ariza MD Unavailable [phone] Physician, Outside Primary Care Provider Unavail able Social History Tobacco Use Types Packs/Day Years Used Date Smoking Tobacco: Never Assessed Sex and Gender Information Value Date Recorded Sex Assigned at Not on file Gender Identity Not on file Sexual Orientation Not on file Plan of Treatment Health Maintenance Due Date Last Done Comments COVID-19 Vaccine (#1) 05/29/1961 Influenza Vaccine 10/19/2022 Care Teams Maritime Pilot Relationship Specialty Start Date End Date Sarina Ariza MD [address] [place] [id number] PCP - External Referring Obstetrics/Gynecology 09/22/18 Phys[place], [place] [address] PCP - General Oncology 01/08/19
[2023-06-09 20:08] LABS: Absolute Basophils 0.1 K/uL (0-0.5); Absolute Eosinophils 0.6 K/uL (0-0.5); Absolute Lymphocytes (CBC) 2.7 K/uL (0.7-4.9); Absolute Monocytes 0.4 K/uL (0.1-1.3); Absolute Neutrophil 2.8 K/uL (1.8-8.0); Basophils % 1.3 % (0-1.3); Eosinophils % 8.9 % (0-4.4); Hematocrit 39.5 % (36.0-45.0); Hemoglobin 12.9 g/dL (12.0-15.0); Lymphocytes % 41.1 % (15.3-44.8); MCH 29.4 pg (27.0-35.0); MCHC 32.6 g/dL (32.0-36.0); MPV 7.1 fL (7.6-11.3); Monocytes % 5.4 % (3.3-12.3); Neutrophils % 43.3 % (41.7-73.7); Nucleated Red Blood Cells % 0.1 % (0-0); Platelets 265 thou/uL (152-406); RBC Red Blood Cell Count 4.38 M/uL (3.86-4.86); Red Cell Distribution Width 15.1 % (12.1-15.2)
[2023-06-09 20:24] LABS: Albumin 3.8 g/dL (3.4-5.0); Albumin/Globulin Ratio 0.8 (1.1-1.8); Anion Gap 8.6 mEq/L (5.0-15.0); Bilirubin Total 0.4 mg/dL (0.2-1.0); Globulin 4.5 g/dL (2.3-3.5); Potassium 3.6 mEq/L (3.5-5.1); Protein, Total 8.3 g/dL (6.4-8.2)
--- NOTE | 2023-06-09 21:06 | EDPHYS ---
Physician Documentation [facility] Name: Darlene Tavera Age: 62 yrs Sex: Female : 1960 Arrival Date: 06/09/2023 Time: 18:26 Bed 15 Private MD: ED Physician Servando Stone HPI: 06/08 18:44 This 62 yrs old Black Female presents to ER via EMS with complaints of High Blood kb Pressure. 18:44 Pt is a 62 year old female who presents for high blood pressure that started this kb morning. States she has been fine for the last few days, but has been eating more salt than normal. States "This morning I felt like I normally do when my blood pressure is high so I knew that is what it was." Pt is prescribed lisinopril 10mg BID, but decreased herself to once daily because her blood pressure was running low. Has been taking it once daily since beginning of March. . Historical: - Allergies: 18:41 No Known Allergies; ll1 - PMHx: 18:40 Colitis; Hypertension; Myocardial infarction; ll1 - PSHx: 18:40 heart stents x 2; ll1 - Immunization history:: Adult Immunizations up to date. - Infectious Disease History:: Denies. - Social history:: Smoking status: Patient denies any tobacco usage or history of. ROS: 20:40 Constitutional: As per HPI kb Exam: 20:40 Constitutional: This is a well developed, well nourished patient who is awake, alert, kb and in no acute distress. Head/Face: Normocephalic, atraumatic. ENT: Moist Mucous membranes Cardiovascular: Regular rate Respiratory: Respirations even and unlabored. No increased work of breathing. Talking in full sentences Abdomen/GI: Soft, non-tender. No distention Skin: Warm, dry with normal turgor. Normal color. MS/ Extremity: Pulses equal, no cyanosis. Neurovascular intact. Full, normal range of motion. Neuro: Awake and alert, GCS 15, oriented to person, place, time, and situation. Moves all extremities. Normal gait. 20:40 ECG was reviewed by the Attending Physician. Vital Signs: 18:41 BP 180 / 92; Pulse 71; Resp 17; Temp 97.8; Pulse Ox 100% ; Weight 69.85 kg; Height 5 ll1 ft. 1 in. ; Pain 2/10; 19:00 BP 160 / 85; Pulse 64; Resp 18; Pulse Ox 100% ; cp4 20:00 BP 171 / 86; Pulse 74; Resp 18; Pulse Ox 100% ; cp4 21:00 BP 153 / 72; Pulse 76; Resp 18; Pulse Ox 98% ; cp4 18:41 Body Mass Index 29.10 (69.85 kg, 154.94 cm) ll1 18:41 Pain Scale: Adult ll1 MDM: 18:49 Patient medically screened. kb 20:41 Data reviewed: vital signs, nurses notes. kb 20:43 Differential diagnosis: hypertensive crisis, Malignant HTN, Arrhythmia abnormal kb electrolytes. Counseling: I had a detailed discussion with the patient and/or guardian regarding the historical points, exam findings, and any diagnostic results supporting the discharge/admit diagnosis, lab results, the need for outpatient follow up, a family practitioner, to return to the emergency department if symptoms worsen or persist or if there are any questions or concerns that arise at home. ED course: At bedside to reassess patient. Patient remains awake, alert and at baseline mentation. Patient appears stable. Patient exhibits no visible signs of distress. Patient respirations even and unlabored. I discussed patient's diagnosis, differential diagnosis, expected course of illness, at home recommendations and strict return precautions. I advised patient to follow-up with PCP in 2 to 3 days. I explained all diagnostic results with the patient and answered all questions that patient had regarding the most likely diagnosis. I emphasized the need for close outpatient follow-up and care from primary care provider/specialist and went through careful and detailed return precautions with patient. Patient expressed full understanding of such and agrees with plan for discharge today. Feel patient is stable and appropriate for discharge and ongoing management of condition at home at this time.. 20:59 ED course: Pt states she has an appt with Brandi to do a routine heart cath on Saturday kb to make sure everything is still looking good. Requests troponin now just to make sure it is not elevated. Denies chest pain. 06/08 18:53 Order name: CBC with Diff; Complete Time: 20:26 kb 06/08 18:53 Order name: CMP; Complete Time: 20:26 kb 06/08 20:48 Order name: Troponin High Sensitivity; Complete Time: 21:05 cp4 04/21 18:53 Order name: EKG; Complete Time: 18:54 kb 06/08 18:53 Order name: EKG - Nurse/Tech; Complete Time: 19:03 kb 06/08 20:27 Order name: Vital Signs; Complete Time: 20:31 kb EC:40 Rate is 60 beats/min. Rhythm is regular. QRS Michael is Normal. OK interval is normal at kb 128 msec. QRS interval is normal at 74 msec. QT interval is normal at 400 msec. Administered Medications: No medications were administered Disposition Summary: 06/09/23 21:05 Discharge Ordered Notes: Location: Home kb Condition: Stable kb Diagnosis - Essential (primary) hypertension kb Followup: kb - With: Emergency Department - When: As needed - Reason: Worsening of condition Followup: kb - With: Private Physician - When: 2 - 3 days - Reason: Recheck today's complaints, Continuance of care, Re-evaluation by your physician Discharge Instructions: - Discharge Summary Sheet kb - Hypertension, Adult, [id number] kb - How to Take Your Blood Pressure, [id number] kb - Managing Your Hypertension kb Forms: - Medication Reconciliation Form kb - Thank You Letter kb - Antibiotic Education kb - Prescription Opioid Use kb - Patient Portal Instructions kb - Leadership Thank You Letter kb Signatures: Dispatcher [employer] Codi Guzman, ANIMAL CARE WORKER-C ANIMAL CARE WORKER-Yakelin Combs RN RN ll1 Corrections: (The following items were deleted from the chart) 18:42 18:40 Allergies: metronidazole; ll1 ll1
--- NOTE | 2023-06-09 21:06 | ER ---
Nurse's Notes [facility] Name: Darlene Tavera Age: 62 yrs Sex: Female : 1960 Arrival Date: 06/09/2023 Time: 18:26 Bed 15 Private MD: Diagnosis: Essential (primary) hypertension Presentation: 06/08 18:41 Chief complaint: Patient states: BP has been elevated today. Slight KWONG. Coronavirus ll1 screen: Client denies travel out of the [place] in the last 14 days. At this time, the client does not indicate any symptoms associated with coronavirus-19. Ebola Screen: Patient denies travel to an Ebola-affected area in the 21 days before illness onset. Initial Sepsis Screen: Does the patient meet any 2 criteria? No. Patient's initial sepsis screen is negative. Does the patient have a suspected source of infection? No. Patient's initial sepsis screen is negative. Risk Assessment: Do you want to hurt yourself or someone else? Patient reports no desire to harm self or others. Onset of symptoms was June 09, 2023. 18:41 Method Of Arrival: EMS ll1 18:41 Acuity: MIMI 3 ll1 Historical: - Allergies: 18:41 No Known Allergies; ll1 - PMHx: 18:40 Colitis; Hypertension; Myocardial infarction; ll1 - PSHx: 18:40 heart stents x 2; ll1 - Immunization history:: Adult Immunizations up to date. - Infectious Disease History:: Denies. - Social history:: Smoking status: Patient denies any tobacco usage or history of. Screenin:43 [facility] ED Fall Risk Assessment (Adult) History of falling in the last 3 months, cp4 including since admission No falls in past 3 months (0 pts) Confusion or Disorientation No (0 pts) Intoxicated or Sedated No (0 pts) Impaired Gait No (0 pts) Mobility Assist Device Used No (0 pt) Altered Elimination No (0 pt) Score/Fall Risk Level 0 - 2 = Low Risk Oriented to surroundings, Maintained a safe environment, Assessed \T\ reinforced patient's understanding of fall precautions, Hourly rounding (assess needs \T\ fall precautionary measures) done. Abuse screen: Denies threats or abuse. Nutritional screening: No deficits noted. Tuberculosis screening: No symptoms or risk factors identified. Assessment: 19:43 General: Appears in no apparent distress. Behavior is calm, cooperative, appropriate cp4 for age. Pain: Complains of pain in headache. Neuro: No deficits noted. Cardiovascular: No deficits noted. Vital Signs: 18:41 BP 180 / 92; Pulse 71; Resp 17; Temp 97.8; Pulse Ox 100% ; Weight 69.85 kg; Height 5 ll1 ft. 1 in. ; Pain 2/10; 19:00 BP 160 / 85; Pulse 64; Resp 18; Pulse Ox 100% ; cp4 20:00 BP 171 / 86; Pulse 74; Resp 18; Pulse Ox 100% ; cp4 21:00 BP 153 / 72; Pulse 76; Resp 18; Pulse Ox 98% ; cp4 18:41 Body Mass Index 29.10 (69.85 kg, 154.94 cm) ll1 18:41 Pain Scale: Adult ll1 ED Course: 18:28 Patient arrived in ED. rg4 18:41 Triage completed. ll1 18:41 Arm band placed on. ll1 18:43 Codi Muñoz FNP-C is [facility]. kb 18:43 Servando Stone MD is Attending Physician. kb 19:03 Aarti Forrester is Primary Nurse. cp4 19:43 Bed in low position. Call light in reach. Side rails up X 1. Provided Education on: cp4 high blood pressure. 19:43 No provider procedures requiring assistance completed. cp4 19:45 Missed attempt(s): Bleeding controlled, band aid applied, catheter tip intact. oe 20:02 Accessed peripheral vein via ultrasound, utilizing dynamic ultrasound technique using cp4 20G Nexia IV catheter Clean \T\ dry. Dressing intact. Good blood return. Flushes easily. 20:03 Client placed on continuous cardiac and pulse oximetry monitoring. NIBP monitoring cp4 applied. alarm security or surveillance monitor on. 20:03 Initial lab(s) drawn, by ED staff, sent to lab. cp4 21:13 intact, bleeding controlled, No redness/swelling at site. Pressure dressing applied. cp4 Administered Medications: No medications were administered Medication: 19:43 VIS not applicable for this client. cp4 Outcome: 21:05 Discharge ordered by . kb 21:13 Discharged to home ambulatory, cp4 21:13 Discharged to home ambulatory, 21:13 Condition: stable 21:13 Discharge instructions given to patient, Instructed on discharge instructions, follow up and referral plans. Demonstrated understanding of instructions, follow-up care, 21:14 Patient left the ED. cp4 Signatures: Codi Muñoz FNP-C KELP OR SEAGRASS GATHERER-Shreya Amaya rg4 Dimitry Soares Lynsay, RN RN ll1 Aarti Forrester cp4 Corrections: (The following items were deleted from the chart) 18:42 18:40 Allergies: metronidazole; ll1 ll1
[2023-06-09 21:40] VITALS: BP 153/72; TEMP 97.8; O2SAT 98
== END 2023-06-09 21:14 | disposition home or self-care (01) ==
LOC: ER 18:26
DX: I10 Essential (primary) hypertension (principal); Z95.818 Presence of other cardiac implants and grafts
CPT/HCPCS: 36415; 80053; 84484; 85025; 93005; 99285

== ENCOUNTER 2023-06-11 11:00 | Day surgery (SDC) | payer BC ==
[2023-06-07 10:23] LABS: Absolute Eosinophils 0.4 K/uL (0-0.5); Absolute Lymphocytes (CBC) 1.7 K/uL (0.7-4.9); Absolute Monocytes 0.4 K/uL (0.1-1.3); Absolute Neutrophil 2.4 K/uL (1.8-8.0); Basophils % 0.1 % (0-1.3); Hematocrit 38.5 % (36.0-45.0); Hemoglobin 12.6 g/dL (12.0-15.0); Lymphocytes % 34.3 % (15.3-44.8); MCH 29.5 pg (27.0-35.0); MCHC 32.9 g/dL (32.0-36.0); MCV 89.8 fL (80-100); MPV 7.1 fL (7.6-11.3); Monocytes % 7.3 % (3.3-12.3); Neutrophils % 49.3 % (41.7-73.7); Nucleated Red Blood Cells % 0.1 % (0-0); Platelets 284 thou/uL (152-406); RBC Red Blood Cell Count 4.29 M/uL (3.86-4.86); Red Cell Distribution Width 14.8 % (12.1-15.2)
[2023-06-07 10:32] LABS: PT Prothrombin Time 11.1 SECONDS (9.5-12.5); PTT, Activated Partial Thromb 31.2 SECONDS (24.3-36.9); Protime INR 1.01
[2023-06-07 10:40] LABS: Anion Gap 6.7 mEq/L (5.0-15.0); Potassium 3.7 mEq/L (3.5-5.1)
[2023-06-11] MEDS: NA CHLORIDE 0.9% 500 ML ONE (11:38)
[2023-06-11 11:49] VITALS: TEMP 97.8; O2SAT 100
[2023-06-11] MEDS ORDERED: HEPA 1000U/500MLS 2,000 UNIT/1,000 ML BAG IV ONE (12:20)
[2023-06-11] MEDS ORDERED: LIDOCAINE 1% 20 ML MDV ONE (12:20)
[2023-06-11] MEDS ORDERED: FENTANYL CITR 100 MCG/2 ML ONE (12:22)
[2023-06-11] MEDS ORDERED: HEPARIN 5000 UNIT/ML 1 ML VIAL ONE (12:22)
[2023-06-11] MEDS ORDERED: VERAPAMIL HCL 10 MG/4 ML VIAL IV ONE (12:22)
[2023-06-11] MEDS ORDERED: MIDAZOLAM HCL 2 MG/2 ML INJ ONE (12:22)
[2023-06-11] MEDS ORDERED: ATROPINE SULF 1 MG/10 ML SYR IV ONE (12:22)
[2023-06-11] MEDS ORDERED: HEPARIN 10,000 UNIT/10 ML VIAL IV ONE ×2 (12:23→14:03)
[2023-06-11] MEDS ORDERED: ASPIRIN 325 MG TAB ONE (12:23)
[2023-06-11] MEDS ORDERED: TICAGRELOR 90 MG TABLET PO ONE ×2 (12:23→17:00)
[2023-06-11] MEDS ORDERED: CLOPIDOGREL 75 MG TABLET ONE (12:23)
[2023-06-11] MEDS ORDERED: REGADENOSON 0.4 MG/5 ML SYR IV ONE (13:28)
[2023-06-11] MEDS ORDERED: NA CHLORIDE 0.9% 1,000 ML ONE (14:32)
--- NOTE | 2023-06-11 16:11 | OP ---
Date of Procedure: 06/11/2023 Surgeon: CURT BETTS Procedure Performed: 1.Selective coronary angiogram. 2.Left heart catheterization. 3.FFR of proximal LAD, was 0.84. 4.IVUS proximal LAD, which revealed a focal dissection of proximal LAD. 5.PCI proximal LAD using 3.5 x 12 mm Synergy drug-eluting stent to overlap with the mid LAD stent an d then due to proximal edge dissection also used 3.5 x 8 mm Synergy drug-eluting stent. Excellent an giographic result at the end. Indication: Coronary artery disease with unstable angina. Access: Right femoral artery 6-Belizean closed with 6-Belizean Angio-Seal. Complications: None. Bleeding: Less than 50 mL. Anesthesia: Total sedation time was 75 minutes. Description Of Procedure: After risks, benefits, and alternatives were explained, the patient agreed to procedure and signed informed consent. The patient was brought into cardiac catheterization labo ratory, prepped and draped in sterile fashion. Then, I accessed right common femoral artery using mi cropuncture kit, ultrasound guidance, fluoroscopy, placed 6-Belizean [place] sheath and took 6-Belizean JL4 catheter over J-wire into the aortic root, engaged left main, took standard views and exchanged f or 6-Belizean JR4 catheter, engaged the RCA, took standard views. The catheter was pushed over the wir e into the LV, measured LVEDP, pulled back, not noted any gradient. Then gave systemic heparin to as sure ACT level above 250 throughout the procedure and took an EBU 3.5 guide over J-wire into the aort ic root, engaged left main and took the FFR wire into the aortic root and pressures were equalized. Then advanced the wire into the LAD passing the area of stenosis. FFR was performed using Lexiscan, was 0.84. Pulling the wire back, there was no drift and then doing an angiogram, the area of proxima l LAD was very hazy and appeared to be severely stenotic, more than 70%, so I took a short run-throug h wire into the left main and then the LAD placed distally and took IVUS catheter and evaluated the p roximal LAD and it was a focal dissection of the proximal LAD, so decided to do a stent, so I took a 3.5 x 12 mm Synergy drug-eluting stent and did direct stenting to overlap with the mid LAD stent. Th is stent expanded very well. However, angiogram showed that there was proximal stent dissection, so I placed another 3.5 x 8 mm Synergy drug-eluting stent, and then the angiographic results were satisf actory. There was no further dissection and excellent results. Then removed the wire, and final ang iogram was satisfactory and removed the guide and removed the sheath and placed 6-Belizean Angio-Seal f or closure with good hemostasis. Findings: 1.Left main: Large and normal. 2.LAD: Proximal 70% to 80% stenosis with focal dissection status post successful PCI as above. The n there is mid LAD stent that is widely patent and diagonal 1 branch has mid stent that is widely pat ent. The rest of the LAD is normal. 3.Left circumflex: Small, nondominant. No significant disease. 4.RCA: Large and dominant with luminal irregularities. 5.Normal LVEDP at 8 mmHg. Conclusion: Proximal LAD focal dissection status post successful PCI as above. Plan: Continue aspirin, Brilinta for a full year. Follow up with me in the office in 1 month. SR/MODL Voice ID: [id number] Report ID: [id number]
[2023-06-11 18:57] VITALS: BP 140/60
--- NOTE | 2023-06-13 17:13 | EKG ---
Test Date: 2023-06-07 Test Time: 09:39:24 Director Business Integration: BRENDAN MEASUREMENT RESULTS: Intervals: Rate: 59 NV: 126 QRSD: 74 QT: 384 QTc: 380 [place]: P: 61 NV: 126 QRS: 50 T: 87 INTERPRETIVE STATEMENTS: Sinus bradycardia Possible Left atrial enlargement Nonspecific T wave abnormality Abnormal ECG Compared to ECG 03/11/2023 09:58:15 Sinus rhythm no longer present Right-axis deviation no longer present T-wave abnormality still present Electronically Signed On 06-13-23 16:50:10 CDT by Charlie Paz
== END 2023-06-11 18:35 | disposition home or self-care (01) ==
LOC: CCL 11:00
PROVIDERS: ATTEND Internal Medicine
DX: I25.110 Atherosclerotic heart disease of native coronary artery with unstable angina pectoris (principal); I99.8 Other disorder of circulatory system; I10 Essential (primary) hypertension; E78.2 Mixed hyperlipidemia; K52.9 Noninfective gastroenteritis and colitis, unspecified; Z87.891 Personal history of nicotine dependence; Z79.899 Other long term (current) drug therapy; Z82.49 Family history of ischemic heart disease and other diseases of the circulatory system
CPT/HCPCS: 36415; 76937; 80048; 85025; 85347; 85610; 85730; 92928; 92978; 93005; 93458; 93571; 99152; 99153; C1725; C1760; C1769; C1874; C1893; G0269; J0461; J1644; J2001; J2250; J2785; J3010; J7030; J7040; Q9966

== ENCOUNTER 2024-07-09 14:32 | Emergency (ER) | payer OTHER ==
--- OUTSIDE RECORDS SUMMARY | 2024-07-09 14:36 | XMS REPORT | Clinical Summary ---
Author Name Unknown Organization [facility] [place] Address [address] [place] [address] Care Team Providers Care Steak Tenderizer Machine Name Role Phone Sarina Ariza MD Unavailable [phone] Physician, Outside Primary Care Provider Unavail able Social History Tobacco Use Types Packs/Day Years Used Date Smoking Tobacco: Never Assessed Comments Unknown Sex and Gender Information Value Date Recorded Sex Assigned at Not on file Legal Sex Female 9:32 AM CDT Gender Identity Not on file Sexual Orientation Not on file Plan of Treatment Health Maintenance Due Date Last Done Comments Pneumococcal Vaccine: 50+ Years ( - PCV) 009 COVID-19 Vaccine ( season) 2023 Influenza Vaccine (Season Ended) 2024 Insurance [facility] PPO [facility] PPO [facility] PPO Care Teams Steak Tenderizer Machine Relationship Specialty Start Date End Date Sarina Ariza MD PCP - External Referring Obstetrics/Gynecology 09/22/18 [place], [place] [address] PCP - General Oncology 01/08/19
--- NOTE | 2024-07-09 15:41 | RAD REPORT ---
EXAM: CT brain without contrast HISTORY: headache htn urgency COMPARISON: None TECHNIQUE: Multiple contiguous axial images were obtained and a CT of the brain without contrast. Sag ittal and coronal reformats were performed. One or more of the following dose reduction techniques were used: Automated exposure control, adjust ment of the mA and/or kV according to patient size, and/or iterative reconstruction. FINDINGS: No evidence of hydrocephalus, intracranial hemorrhage, or extra-axial fluid collection. The brain is normal in morphology. No evidence of midline shift or areas of brain edema. The calvarium is intact. Mild fluid is seen right maxillary antrum. Trace fluid left maxillary antrum . IMPRESSION: No evidence of acute intracranial abnormality.
--- NOTE | 2024-07-09 15:47 | RAD REPORT ---
EXAMINATION: ONE VIEW CHEST XR CLINICAL INDICATION: MALAISE TECHNIQUE: Frontal chest projection is submitted. Examination is limited by patient positioning and t echnique. COMPARISON: 03/10/2023 FINDINGS: The lungs are well inflated and clear. The heart is normal in size. No displaced fractures identified . IMPRESSION: No acute intrathoracic abnormalities.
[2024-07-09 17:37] LABS: Absolute Basophils 0.1 K/uL (0-0.5); Absolute Eosinophils 0.3 K/uL (0-0.5); Absolute Lymphocytes (CBC) 1.8 K/uL (0.7-4.9); Absolute Monocytes 0.4 K/uL (0.1-1.3); Absolute Neutrophil 3.2 K/uL (1.8-8.0); Basophils % 1.1 % (0-1.3); Hematocrit 43.6 % (36.0-45.0); Hemoglobin 14.5 g/dL (12.0-15.0); Lymphocytes % 30.9 % (15.3-44.8); MCH 29.7 pg (27.0-35.0); MCHC 33.3 g/dL (32.0-36.0); MCV 89.2 fL (80-100); MPV 7.2 fL (7.6-11.3); Monocytes % 6.8 % (3.3-12.3); Neutrophils % 56.2 % (41.7-73.7); Nucleated Red Blood Cells % 0.1 % (0-0); Platelets 249 thou/uL (152-406); RBC Red Blood Cell Count 4.89 M/uL (3.86-4.86); Red Cell Distribution Width 14.6 % (12.1-15.2)
[2024-07-09 17:46] LABS: PT Prothrombin Time 11.4 SECONDS (10-13.0)
[2024-07-09 18:20] LABS: ALT/SGPT 57 U/L (13-56); AST/SGOT 33 U/L (15-37); Albumin/Globulin Ratio 0.8 (1.1-1.8); Alkaline Phosphatase 111 U/L (45-117); Anion Gap 8.6 mEq/L (5.0-15.0); BUN Blood Urea Nitrogen 17 mg/dL (7-18); Bicarbonate 27 mEq/L (21-32); Bilirubin Direct < 0.2 mg/dL (0-0.2); Bilirubin Indirect, Calculated 0.1 mg/dL (0.2-0.8); Bilirubin Total 0.3 mg/dL (0.2-1.0); Glomerular Filtration Rate 73 ml/min (=/>90); Glucose Level 86 mg/dL (74-106); Magnesium 2.2 mg/dL (1.6-2.4); Potassium 3.6 mEq/L (3.5-5.1); Sodium Level 138 mEq/L (136-145); Troponin High Sensitivity 10.3 pg/mL (<58.9)
--- NOTE | 2024-07-09 18:24 | ER ---
Nurse's Notes [facility] Name: Darlene Tavera Age: 63 yrs Sex: Female : 1960 Arrival Date: 07/09/2024 Time: 14:32 Bed 13 Private MD: Diagnosis: Hypertensive urgency, resolved Presentation: 07/09 15:01 Chief complaint: Patient states: Elevated BP for a few days. 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 + ll1 KWONG and doesn't feel well. Coronavirus screen: Client denies travel out of the [place] in the last 14 days. At this time, the client does not indicate any symptoms associated with coronavirus-19. Ebola Screen: Patient denies travel to an Ebola-affected area in the 21 days before illness onset. Initial Sepsis Screen: Does the patient meet any 2 criteria? No. Patient's initial sepsis screen is negative. Does the patient have a suspected source of infection? No. Patient's initial sepsis screen is negative. Risk Assessment: Do you want to hurt yourself or someone else? Patient reports no desire to harm self or others. Onset of symptoms was July 07, 2024. 15:01 Method Of Arrival: Ambulatory ll1 15:01 Acuity: MIMI 3 ll1 Triage Assessment: 15:00 General: Appears uncomfortable, Behavior is cooperative, appropriate for age, anxious, ll1 Reports fatigue for. Pain: Complains of pain in head Quality of pain is described as aching. Neuro: Reports headache high BP. Cardiovascular: Reports shortness of breath, elevated BP. Historical: - Allergies: 14:56 No Known Allergies; ll1 - PMHx: 14:56 Colitis; Hypertension; Myocardial infarction; ll1 - PSHx: 14:56 heart stents x 2; ll1 - Immunization history:: Adult Immunizations up to date. - Social history:: Smoking status: Patient denies any tobacco usage or history of. Screenin:59 [facility] ED Fall Risk Assessment (Adult) History of falling in the last 3 months, jb4 including since admission No falls in past 3 months (0 pts) Confusion or Disorientation No (0 pts) Intoxicated or Sedated No (0 pts) Impaired Gait No (0 pts) Mobility Assist Device Used No (0 pt) Altered Elimination No (0 pt) Score/Fall Risk Level 0 - 2 = Low Risk Oriented to surroundings, Maintained a safe environment. Abuse screen: Denies threats or abuse. Nutritional screening: No deficits noted. Tuberculosis screening: No symptoms or risk factors identified. Assessment: 18:59 Reassessment: Patient appears in no apparent distress at this time. Patient and/or jb4 family updated on plan of care and expected duration. Pain level reassessed. Patient is alert, oriented x 3, equal unlabored respirations, skin warm/dry/pink. Vital Signs: 15:01 Pain 8/10; ll1 15:01 BP 164 / 89; Pulse 84; Resp 16; Temp 97.3; Pulse Ox 100% ; Weight 72.57 kg; Height 5 ll1 ft. 1 in. ; 18:59 BP 158 / 88; Pulse 78; Resp 16; Pulse Ox 99% ; jb4 15:01 Body Mass Index 30.23 (72.57 kg, 154.94 cm) ll1 15:01 Pain Scale: Adult ll1 ED Course: 14:37 Patient arrived in ED. gl 14:52 Cherise Allen MD is Attending Physician. sp3 14:55 Arm band placed on. ll1 15:03 Triage completed. ll1 15:25 CT Head Brain wo Cont In Process Unspecified. EDMS 15:30 CXR XRAY In Process Unspecified. EDMS 18:59 Patient has correct armband on for positive identification. Bed in low position. Call jb4 light in reach. Side rails up X 1. Provided Education on: discharge instructions.. 18:59 No provider procedures requiring assistance completed. IV discontinued, intact, jb4 bleeding controlled, No redness/swelling at site. Pressure dressing applied. Administered Medications: No medications were administered Medication: 18:59 VIS not applicable for this client. jb4 Outcome: 18:23 Discharge ordered by . saeed 18:59 Discharged to home ambulatory, jb4 18:59 Condition: stable 18:59 Discharge instructions given to patient, Instructed on discharge instructions, follow up and referral plans. Demonstrated understanding of instructions, follow-up care, 19:01 Patient left the ED. jb4 Signatures: Dispatcher [employer] EDMS Steven Mckeon MD MD cha Bryson, James RN RN jb4 Yakelin Vaughn RN RN 1 Cherise Allen MD MD sp3 Shanta Jaegre, Reg Reg gl Corrections: (The following items were deleted from the chart) 15:03 15:01 BP 164 / 89; Pulse 91bpm; Resp 16bpm; Pulse Ox 100%; Temp 97.3F; 72.57 kg; Height ll1 5 ft. 1 in.; BMI: 30.2; ll1
--- NOTE | 2024-07-09 18:24 | EDPHYS ---
Physician Documentation [facility] Name: Darlene Tavera Age: 63 yrs Sex: Female : 1960 Arrival Date: 07/09/2024 Time: 14:32 Bed 13 Private MD: ED Physician Cherise Allen HPI: 07/09 15:13 This 63 yrs old Black Female presents to ER via Ambulatory with complaints of High sp3 Blood Pressure. 15:13 63-year-old female with history of hypertension, prior ID, colitis now presents to the 3 ED with chief complaint headache from high blood pressure. Patient's blood pressure at home with several readings with systolic in the 190s with diastolics in the 90s. Patient sees Dr. Juares who has her on as needed clonidine for when this happens for which she took 0.1 mg p.o. She states that she still has feelings of fatigue, chest pressure and headache. She denies ongoing shortness of breath, neck pain, abdominal pain, nausea, vomiting, diarrhea, syncope, near syncope, focal neurological deficit, fever or travel history, prolonged immobilization, prior DVT or PE, or any other signs or symptoms on ROS at this time.. Historical: - Allergies: 14:56 No Known Allergies; ll1 - PMHx: 14:56 Colitis; Hypertension; Myocardial infarction; ll1 - PSHx: 14:56 heart stents x 2; ll1 - Immunization history:: Adult Immunizations up to date. - Social history:: Smoking status: Patient denies any tobacco usage or history of. ROS: 15:14 Constitutional: Negative for fever, chills, and weight loss, Eyes: Negative for injury, sp3 pain, redness, and discharge, ENT: Negative for injury, pain, and discharge, Neck: Negative for injury, pain, and swelling, Respiratory: Negative for shortness of breath, cough, wheezing, and pleuritic chest pain, Abdomen/GI: Negative for abdominal pain, nausea, vomiting, diarrhea, and constipation, Back: Negative for injury and pain, MS/Extremity: Negative for injury and deformity, Skin: Negative for injury, rash, and discoloration, Psych: Negative for depression, anxiety, suicide ideation, homicidal ideation, and hallucinations, Allergy/Immunology: Negative for hives, rash, and allergies, Endocrine: Negative for neck swelling, polydipsia, polyuria, polyphagia, and marked weight changes, Hematologic/Lymphatic: Negative for swollen nodes, abnormal bleeding, and unusual bruising, 15:14 All other systems are negative, Exam: 15:14 Constitutional: This is a well developed, well nourished patient who is awake, alert, sp3 and in no acute distress. Head/Face: Normocephalic, atraumatic. Eyes: Pupils equal round and reactive to light, extra-ocular motions intact. Lids and lashes normal. Conjunctiva and sclera are non-icteric and not injected. Cornea within normal limits. Periorbital areas with no swelling, redness, or edema. ENT: Nares patent. No nasal discharge, no septal abnormalities noted. External auditory canals are clear. Oropharynx with no redness, swelling, or masses, exudates, or evidence of obstruction, uvula midline. Mucous membranes moist. Neck: Trachea midline, no thyromegaly or masses palpated, and no cervical lymphadenopathy. Supple, full range of motion without nuchal rigidity, or vertebral point tenderness. No Meningismus. Chest/axilla: Normal chest wall appearance and motion. Nontender with no deformity. No lesions are appreciated. Cardiovascular: Regular rate and rhythm with a normal S1 and S2. No gallops, murmurs, or rubs. Normal PMI, no JVD. No pulse deficits. Respiratory: Lungs have equal breath sounds bilaterally, clear to auscultation and percussion. No rales, rhonchi or wheezes noted. No increased work of breathing, no retractions or nasal flaring. Abdomen/GI: Soft, non-tender, with normal bowel sounds. No distension or tympany. No guarding or rebound. No evidence of tenderness throughout. Back: No spinal tenderness. No costovertebral tenderness. Full range of motion. Skin: Warm, dry with normal turgor. Normal color with no rashes, no lesions, and no evidence of cellulitis. MS/ Extremity: Pulses equal, no cyanosis. Neurovascular intact. Full, normal range of motion. Neuro: Awake and alert, GCS 15, oriented to person, place, time, and situation. Cranial nerves II-XII grossly intact. Motor strength 5/5 in all extremities. Sensory grossly intact. Cerebellar exam normal. Normal gait. Psych: Awake, alert, with orientation to person, place and time. Behavior, mood, and affect are within normal limits. 17:18 ECG was reviewed by the Attending Physician. EKG demonstrates normal sinus rhythm at 60 sp3 bpm with normal intervals, normal QRS, normal axis, normal ST's ST segments without evidence of acute ischemia. Vital Signs: 15:01 Pain 8/10; ll1 15:01 BP 164 / 89; Pulse 84; Resp 16; Temp 97.3; Pulse Ox 100% ; Weight 72.57 kg; Height 5 ll1 ft. 1 in. ; 18:59 BP 158 / 88; Pulse 78; Resp 16; Pulse Ox 99% ; jb4 15:01 Body Mass Index 30.23 (72.57 kg, 154.94 cm) ll1 15:01 Pain Scale: Adult ll1 MDM: 14:56 Medical Screening Exam initiated sp3 15:11 Data reviewed: vital signs, nurses notes, old medical records, lab test result(s), EKG, sp3 radiologic studies. 15:15 ED course: 63-year-old female with hypertensive urgency and chest pressure. sp3 Differential diagnosis includes hypertension induced headache, ACS, other metabolic syndrome, viral illness, among others. Workup will include CT scan of the head, chest x-ray, EKG, general labs including troponin. Disposition pending workup and patient course with probable discharge home if workup negative.. 07/09 15:11 Order name: Basic Metabolic Panel [facility] 07/09 15:11 Order name: CBC with Diff; Complete Time: 17:45 [facility] 07/09 15:11 Order name: LFT's [facility] 07/09 15:11 Order name: Magnesium [facility] 07/09 15:11 Order name: NT PRO-BNP [facility] 07/09 15:11 Order name: PT-INR; Complete Time: 17:47 [facility] 07/09 15:11 Order name: Troponin HS [facility] 07/09 15:11 Order name: CXR XRAY; Complete Time: 16:56 [facility] 07/09 15:11 Order name: CT Head Brain wo Cont; Complete Time: 16:56 [facility] 07/09 15:11 Order name: Cardiac monitoring; Complete Time: 17:04 [facility] 07/09 15:11 Order name: EKG - Nurse/Tech; Complete Time: 17:49 [facility] 07/09 15:11 Order name: IV Saline Lock; Complete Time: 17:49 sp3 07/09 15:11 Order name: Labs collected and sent; Complete Time: 17:49 sp3 07/09 15:11 Order name: O2 Per Protocol; Complete Time: 17:04 sp3 07/09 15:11 Order name: O2 Sat Monitoring; Complete Time: 17:04 sp3 Administered Medications: No medications were administered Disposition Summary: 07/09/24 18:23 Discharge Ordered Notes: Location: Home saeed Condition: Stable saeed Diagnosis - Hypertensive urgency, resolved saeed Followup: sp3 - With: Private Physician - When: Upon discharge from the Emergency Department - Reason: Continuance of care Discharge Instructions: - Discharge Summary Sheet sp3 - Hypertension, Adult sp3 Forms: - Medication Reconciliation Form saeed - Antibiotic Education saeed - Prescription Opioid Use saeed - Patient Portal Instructions saeed - Leadership Thank You Letter saeed Signatures: Dispatcher [employer] Steven George MD MD cha Lewis, Lynsay, RN RN ll1 Cherise Allen MD MD sp3 Corrections: (The following items were deleted from the chart) 15:12 15:12 BASIC METABOLIC PANEL+C.LAB.BRZ ordered. [facility] EDMS 15:12 15:12 CBC+H.LAB.BRZ ordered. [facility] EDMS 15:12 15:12 HEPATIC FUNCTION+C.LAB.BRZ ordered. [facility] EDMS 15:12 15:12 MAGNESIUM+C.LAB.BRZ ordered. [facility] EDMS 15:12 15:12 PROBNP+C.LAB.BRZ ordered. [facility] EDMS 15:12 15:12 PROTIME (+INR)+COAG.LAB.BRZ ordered. [facility] EDMS 15:12 15:12 Troponin High Sensitivity+C.LAB.BRZ ordered. [facility] EDMS 15:12 15:12 Chest Single View+RAD.RAD.BRZ ordered. [facility] EDMS 15:12 15:12 Head Brain Wo Cont+CT.RAD.BRZ ordered. [facility] EDMS 15:15 15:11 ED course: 63-year-old female with history of hypertension, prior ID last year, sp3 colitis now presents with hypertensive urgency and headache and general fatigue/malaise. Patient states that her blood pressure was in the 190 systolic with diastolic being in the 90s. When this happens she tends to get the weakness and malaise. Patient had outpatient labs done and was told that some of them were abnormal but she cannot remember what they were. Patient sees Dr. Juares as her PCP. Dr. Paz for her critical care registered nurse. She denies any ongoing neck pain, chest pain, shortness of breath, abdominal pain, vomiting, diarrhea, syncope, or any other signs or symptoms on ROS at this time.. sp3
[2024-07-09 18:29] LABS: NT PRO-BNP 100 pg/mL (<125)
[2024-07-09 19:25] VITALS: TEMP 97.3
[2024-07-09 19:26] VITALS: BP 158/88; O2SAT 99
--- NOTE | 2024-07-14 12:35 | EKG ---
Test Date: 2024-07-09 Test Time: 17:14:11 Lead Electrical Engineer: AM MEASUREMENT RESULTS: Intervals: Rate: 60 NE: 124 QRSD: 82 QT: 392 QTc: 392 [place]: P: 62 NE: 124 QRS: 70 T: 45 INTERPRETIVE STATEMENTS: Normal sinus rhythm Possible Left atrial enlargement Borderline ECG Compared to ECG 06/09/2023 18:55:04 No significant changes Electronically Signed On 07-14-24 12:25:50 CDT by Cliff Bolton
== END 2024-07-09 19:01 | disposition home or self-care (01) ==
LOC: ER 14:32
DX: I16.0 Hypertensive urgency (principal); I10 Essential (primary) hypertension; I25.2 Old myocardial infarction; Z95.818 Presence of other cardiac implants and grafts
CPT/HCPCS: 36415; 70450; 71045; 80048; 80076; 83735; 83880; 84484; 85025; 85610; 93005; 99283